=== PATIENT | female | born 1945 | race Caucasian/White ===

== ENCOUNTER → 2023-09-29 08:35 | Outpatient (REF) | payer MEDICARE, SELFPAY | LOC: WDC 08:35 | PROVIDERS: ATTENDING PHYSICIAN Nurse Practitioner; FAMILY PHYSICIAN Internal Medicine | DX: Z12.31 Encounter for screening mammogram for malignant neoplasm of breast (principal) | CPT/HCPCS: 77063; 77067 ==

== ENCOUNTER → 2023-10-06 08:34 | Outpatient (REF) | payer MEDICARE, SELFPAY | LOC: WDC 08:34 | PROVIDERS: ATTENDING PHYSICIAN Nurse Practitioner | DX: R92.8 Other abnormal and inconclusive findings on diagnostic imaging of breast (principal) | CPT/HCPCS: 76642 ==

== ENCOUNTER → 2023-10-08 10:09 | Outpatient (REF) | payer MEDICARE, SELFPAY ==
--- NOTE | 2023-10-08 13:38 | OID.BR.INTR ---
[facility] Breast Navigator - Initial
- -
Date of Contact: 10/08/23
Met with patient. Patient given written information on navigator services available at [facility]. Will follow up as needed per protocol.
== END ==
LOC: WDC 10:09
PROVIDERS: ATTENDING PHYSICIAN Nurse Practitioner
DX: N63.10 Unspecified lump in the right breast, unspecified quadrant (principal); N63.13 Unspecified lump in the right breast, lower outer quadrant
CPT/HCPCS: 88305; 19083; 77065; 88341; 88360; A4648

== ENCOUNTER 2023-11-09 12:12 | Emergency (ER) | payer MEDICARE, SELFPAY ==
[2023-11-09 12:14] VITALS: BP 148/75; BMI 24.8
--- NOTE | 2023-11-09 13:25 | ED.GENMED ---
History of Present Illness
General
Chief Complaint: Urinary Symptoms
Source: patient
Exam Limitations: none
Time Seen by Provider: 11/09/23 12:58
Nursing documentation reviewed up to this point in time: agreed with
Travel History
Have you had any contact with someone who has COVID-19?: No
Do you have any symptoms of coronavirus? Fever > 100 degrees, chills, cough, shortness of breath, sore throat, loss of taste or smell, muscle aches, or headache?: No
History of Present Illness
History of Present Illness:
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
recent diagnosis of breast ca due to start chemo nxt week
having dec urinary output the past few days, with increased frequency and urgency; she was awake a few times last night trying to go and a little dribble would come out. pt has had UTI and kidney infection before and had more dysuria sypmtoms than
this time
no fever, chills, nauesa, vomiting
had back pain left flank last niight but it resolved
she has never had kidney stone
she denies h/o urinary retetnion
she belives she has been hydrated but hasn't had appetite
Past History
Past History
ED Past Medical History: CVA and Other
ED Past Surgical History: Cardiac
Patient has exhibited threatening behavior?: No
Social History
Tobacco: Non-smoker
Alcohol: Occasional
Drug: None
Personal:
Living: with family
Review of Systems
Review of Systems
Allergies reviewed?: Yes
All Other Systems: Not applicable
Phy Exam
Physical Exam
Physical Exam:
GENERAL: Alert, comfortable
Neck: supple
CARDIAC: Regular rate and rhythm .
LUNGS: Clear breath sounds bilaterally, no acute respiratory distress, no wheezes/rales/rhonchi
ABDOMEN: Soft, normal bowel sounds, nondistended, no guarding, no rebound, neg espino's
no suprapubic fullness
mild L cva tednerness;
NEUROLOGICAL: Alert and oriented, no focal neuro deficits
SKIN: Warm and dry, skin intact.
PSYCH: Normal and appropriate interaction.
Course
Orders/Labs/Results
Orders:
Orders
11/09/23 13:09
Bladder Scan- Treatment ONCE
11/09/23 13:28
Straight cath- Treatment ONCE
0.9% Sodium Chloride 1000 ml [Nss] 1,000 ml IV BOLUS
11/09/23 13:35
Complete Blood Count/With Diff Urgent
Comprehensive Metabolic Panel Urgent
11/09/23 14:40
Urinalysis Reflex To Culture Urgent
Date Specimen was Collected: 11/09/23
Time Specimen was Collected: 14:39
Urine Microscopic Reflex Cult Urgent
11/09/23 14:41
Acetaminophen [Tylenol] 650 mg PO NOW STA
11/09/23 15:00
CT Abd/pel Without Iv Or Oral Urgent
Comment:
Reason For Exam: left flank pain, dec urinjation
11/09/23 18:12
Tamsulosin [Flomax] 0.4 mg PO NOW STA
Abnormal Lab Results
11/09/23 11/09/23
13:35 14:40
Hct 36.5 L %
(37.0-47.0)
Absolute Monos (auto) 0.8 H 10^3/uL
(0.1-0.6)
Lymphocytes % 15.8 L %
(20.5-51.1)
Monocytes % 10.0 H %
(1.7-9.3)
Sodium 129 L mmol/L
(135-145)
Chloride 96 L mmol/L
(98-107)
BUN 19 H mg/dl
(7-17)
Glucose 119 H mg/dl
(70-99)
Ur Occult Blood Reflex 2+ A
(Negative)
Urine RBC 3-6 A /HPF
(0-2)
11/09/23 13:35
11/09/23 13:35
Vital Signs
Initial and Last Documented VS:
Initial Vital Signs
Temp Pulse Resp BP Pulse Ox
98.4 F 86 16 148/75 98
11/09/23 12:14 11/09/23 12:14 11/09/23 12:14 11/09/23 12:14 11/09/23 12:14
Last Documented Vital Signs
Temp Pulse Resp BP Pulse Ox
98.4 F 62 16 138/74 98
11/09/23 12:14 11/09/23 18:18 11/09/23 18:18 11/09/23 18:18 11/09/23 18:18
MDM/Problems Addressed
Differential Diagnosis Includes:
kidney stone, kidney infection, urainary retention, uti
MDM/Problems Addressed:
77 y//o F with h/o newly dx breast ca, due to start chemo next week
cva right UE weakness chronically
noticed dec urine output x 2-3 days, dribbling at times, frequency last night, no dysuria, fever, vomiting an dsome back pain that resolved last night
here had nomal wbc , no fever, na of 129, bun 19/cr 0.9, and ua with blood an da few rbcs only
ct shows severe L hydro escondary to 2.7 mm L UVJ stone; her pain is well controlled
i gave her a liter of fluid here; no retention, but we did straight cath for ua.
pt would like to go home for trial of passage
d/w dr. marquez who agrees
flomax, tylenol fluids
return precautions
*Critical Care Note
Total Time (30-74mins, 75-104mins- exclusive of procedures): Not Applicable
ED Attending Note
-
Portions of this chart may have been created with voice recognition software.� Occasional wrong word or��sound alike� substitutions may have occurred due to the inherent limitations of voice recognition software.
Discharge Plan
Departure
Patient Disposition: Home (Routine Discharge)
Date of Disposition: 11/09/23
Time of Disposition: 18:10
Patient with high blood pressure during this ER visit?: No
Condition: Fair
Discharge Problem:
Kidney stone, Ureterolithiasis, Acute hyponatremia
Instructions: Kidney Stone, Adult ED
Prescriptions:
New
tamsulosin [Flomax] 0.4 mg capsule
0.4 mg PO DAILY Qty: 10 0RF
No Action
multivitamin [Zhd-Lousdl-Jkgom] 1 EACH tablet
1 ea PO QPM
citalopram 20 MG tablet
20 mg PO DAILY
baclofen 10 MG tablet
10 mg PO TID
ramipril 10 MG capsule
10 mg PO DAILYPRN PRN (Reason: blood pressure)
aspirin 81 MG tablet
81 mg PO ONCE
rosuvastatin [Crestor] 10 MG tablet
10 mg PO DAILY
omeprazole [Prilosec] 10 MG capsule,delayed release(DR/EC)
20 mg PO DAILY
ranitidine HCl [Zantac Maximum Strength] 150 MG tablet
150 mg PO DAILYPRN PRN (Reason: acid )
calcium citrate-vitamin D3 [Calcium Citrate + D] 1 EACH tablet
1 ea PO DAILY
sucralfate 1 GM/10 ML suspension
1 gm PO QID Qty: 10 0RF
Referrals:
Rekha Andersen MD [Family Provider] -
Blayne Marquez MD [Active] - Follow up in 5-7 days
Activity Restrictions/Additional Instructions:
YOU HAVE A SMALL KIDNEY STONE ON YOUR LEFT SIDE
DRINK FLUIDS
YOUR SODIUM WAS A LITTLE LOW, IT SHOULD BE REPEATED THIS WEEK
TAKE FLOMAX ONCE A DAY UNTIL OU PASS THE STONE
WHEN YOU URINATE, MAKE SURE TO PEE THROUGH THE STRAINER SO YOU CAN SEE WHEN YOU PASS THE STONE
TAKE TYLENOL FOR PAIN
FOLLOW UP WITH THE UROLOGIST THIS WEEK
RETURN FOR: WORSENING PAIN, FEVER, VOMITING, NOT PEEING O RNAY CONCERNS.
Interventions
Interventions:
*Risk Screen - Suicide Last Done: 11/09/23 12:14
*General Assessment Last Done: 11/09/23 13:24
*Neglect/Abuse Screening Last Done: 11/09/23 12:14
ED- Fall Risk Assessment Last Done: 11/09/23 12:14
*ED COVID-19 Vaccine History Last Done: 11/09/23 13:24
*Nursing Disposition Last Done: 11/09/23 18:24
ED-Female Genitourinary Assessment Last Done: 11/09/23 13:24
Discharge Date and Time
Discharge Date/Time: 11/09/23 18:29
Print Language: GEORGIAN
[2023-11-09] MEDS: NSS 1000 IV (13:36)
[2023-11-09 13:38] VITALS: BP 130/56
[2023-11-09 13:43] LABS: % Basophils 0.5 % (0-2); % Eosinophils 0.1 % (0-6); % Immature Granulocytes 0.3 % (0-0.5); % Lymphocytes 15.8 % (20.5-51.1); % Neutrophils 73.3 % (42.2-75.2); Absolute Lymphocytes 1.2 10^3/uL (1.2-3.4); Absolute Monocytes 0.8 10^3/uL (0.1-0.6); Absolute Neutrophils 5.5 10^3/uL (1.4-6.5); Hematocrit 36.5 % (37.0-47.0); Hemoglobin 12.5 g/dL (12.0-16.0); Mean Corp Hgb Conc. 34.2 g/dL (33.0-37.0); Mean Corpuscular Hgb 29.3 pg (27.0-31.0); Mean Corpuscular Volume 85.5 fL (81.0-99.0); Mean Platelet Volume 8.7 fL (7.4-10.4); Nucleated Red Blood Cells % 0 %; Platelet Count 248 10^3/uL (130-400); Red Blood Cell Count 4.27 10^6/uL (4.20-5.40); White Blood Cell Count 7.5 10^3/uL (4.8-10.8)
[2023-11-09 13:56] LABS: ALT (SGPT) 20 U/L (0-35); AST (SGOT) 26 U/L (14-36); Albumin 3.9 g/dl (3.5-5.0); Alkaline Phosphatase 65 U/L (38-126); Blood Urea Nitrogen 19 mg/dl (7-17); Calcium 9.4 mg/dl (8.4-10.2); Carbon Dioxide 27 mmol/L (22-30); Chloride 96 mmol/L (98-107); Estimated Creatinine Clearance 54 ml/min; Glucose 119 mg/dl (70-99); Sodium 129 mmol/L (135-145); Total Bilirubin 0.5 mg/dl (0.2-1.3); Total Protein 6.3 g/dl (6.3-8.2); eGFR > 60.00
[2023-11-09 14:43] VITALS: BP 149/71
[2023-11-09] MEDS: TYLENOL 650 MG PO (14:45)
[2023-11-09 14:52] LABS: Urine Albumin Negative (Neg - Trace); Urine Bilirubin Negative (Negative); Urine Character Clear (Clear); Urine Color Yellow; Urine Glucose Negative (Negative); Urine Ketone Negative (Negative); Urine Leukocyte Negative (Negative); Urine Nitrite Negative (Negative); Urine Occult Blood 2+ (Negative); Urine Urobilinogen Negative (Neg - 1+); Urine pH 6.5 (5.0-9.0)
[2023-11-09 14:58] LABS: Urine White Cell 0-2 /HPF (0-5)
[2023-11-09 16:33] VITALS: BP 138/74
[2023-11-09] MEDS: FLOMAX 0.400000000000000022 MG PO (18:15)
[2023-11-09 18:18] VITALS: BP 138/74
== END 2023-11-09 18:29 | disposition home or self-care (01) ==
LOC: EMR 12:12
PROVIDERS: Physician Assistant; EMERGENCY PHYSICIAN Emergency Medicine; FAMILY PHYSICIAN Internal Medicine
DX: N13.2 Hydronephrosis with renal and ureteral calculous obstruction (principal); E87.1 Hypo-osmolality and hyponatremia; R53.1 Weakness; C50.919 Malignant neoplasm of unspecified site of unspecified female breast; I69.351 Hemiplegia and hemiparesis following cerebral infarction affecting right dominant side; K58.9 Irritable bowel syndrome, unspecified; K21.9 Gastro-esophageal reflux disease without esophagitis; Z87.440 Personal history of urinary (tract) infections; Z87.891 Personal history of nicotine dependence; Z79.82 Long term (current) use of aspirin; Z90.49 Acquired absence of other specified parts of digestive tract; Z88.6 Allergy status to analgesic agent; Z88.3 Allergy status to other anti-infective agents; Z88.5 Allergy status to narcotic agent; Z88.0 Allergy status to penicillin; Z88.8 Allergy status to other drugs, medicaments and biological substances; Z91.048 Other nonmedicinal substance allergy status
CPT/HCPCS: 99284; 51701; 96360; 74176; 80053; 81003; 81015; 85025

== ENCOUNTER → 2023-11-17 08:20 | Outpatient (REF) | payer MEDICARE, SELFPAY ==
[2023-11-17 08:37] VITALS: BP 142/74; BP_SYST 69
[2023-11-17] MEDS: VANCOCIN 200 IV (08:58)
[2023-11-17 10:35] VITALS: BP 136/62; BP_SYST 66
== END ==
LOC: RADI 08:20
PROVIDERS: ATTENDING PHYSICIAN Internal Medicine Hematology & Oncology; FAMILY PHYSICIAN Internal Medicine
DX: C50.511 Malignant neoplasm of lower-outer quadrant of right female breast (principal)
CPT/HCPCS: 36561; 76937; 77001; 99152; 99153; C1788

== ENCOUNTER → 2023-11-20 10:01 | Outpatient (REF) | payer MEDICARE, SELFPAY ==
[2023-11-20 10:06] LABS: % Basophils 1.3 % (0-2); % Immature Granulocytes 0.3 % (0-0.5); % Lymphocytes 28.1 % (20.5-51.1); % Monocytes 5.2 % (1.7-9.3); % Neutrophils 64.1 % (42.2-75.2); Absolute Basophils 0.1 10^3/uL (0-0.2); Absolute Lymphocytes 1.1 10^3/uL (1.2-3.4); Absolute Monocytes 0.2 10^3/uL (0.1-0.6); Absolute Neutrophils 2.4 10^3/uL (1.4-6.5); Hematocrit 37.3 % (37.0-47.0); Hemoglobin 12.2 g/dL (12.0-16.0); Mean Corp Hgb Conc. 32.7 g/dL (33.0-37.0); Mean Corpuscular Hgb 29.1 pg (27.0-31.0); Nucleated Red Blood Cells % 0 %; Platelet Count 269 10^3/uL (130-400); Red Blood Cell Count 4.19 10^6/uL (4.20-5.40); Red Cell Dist. Width 12.9 % (11.5-14.5); White Blood Cell Count 3.8 10^3/uL (4.8-10.8)
[2023-11-20 10:18] LABS: ALT (SGPT) 19 U/L (0-35); AST (SGOT) 25 U/L (14-36); Albumin 3.9 g/dl (3.5-5.0); Alkaline Phosphatase 66 U/L (38-126); Blood Urea Nitrogen 17 mg/dl (7-17); Calcium 9.3 mg/dl (8.4-10.2); Carbon Dioxide 28 mmol/L (22-30); Chloride 103 mmol/L (98-107); Glucose 102 mg/dl (70-99); Potassium 4.5 mmol/L (3.5-5.1); Sodium 136 mmol/L (135-145); Total Bilirubin 0.4 mg/dl (0.2-1.3); Total Protein 6.3 g/dl (6.3-8.2); eGFR > 60.00
== END ==
LOC: OIDL 10:01
PROVIDERS: ATTENDING PHYSICIAN Internal Medicine Hematology & Oncology
DX: C50.511 Malignant neoplasm of lower-outer quadrant of right female breast (principal)
CPT/HCPCS: 80053; 85025

== ENCOUNTER → 2023-11-26 10:44 | Outpatient (REF) | payer MEDICARE, SELFPAY ==
[2023-11-26 11:15] LABS: % Basophils 1.4 % (0-2); % Eosinophils 1.4 % (0-6); % Immature Granulocytes 0.3 % (0-0.5); % Lymphocytes 32.5 % (20.5-51.1); % Monocytes 4.2 % (1.7-9.3); % Neutrophils 60.2 % (42.2-75.2); Absolute Lymphocytes 0.9 10^3/uL (1.2-3.4); Absolute Monocytes 0.1 10^3/uL (0.1-0.6); Absolute Neutrophils 1.7 10^3/uL (1.4-6.5); Hemoglobin 11.8 g/dL (12.0-16.0); Mean Corp Hgb Conc. 31.9 g/dL (33.0-37.0); Mean Corpuscular Hgb 29.3 pg (27.0-31.0); Mean Corpuscular Volume 91.8 fL (81.0-99.0); Nucleated Red Blood Cells % 0 %; Platelet Count 277 10^3/uL (130-400); Red Blood Cell Count 4.03 10^6/uL (4.20-5.40); Red Cell Dist. Width 12.8 % (11.5-14.5); White Blood Cell Count 2.9 10^3/uL (4.8-10.8)
[2023-11-26 11:43] LABS: ALT (SGPT) 17 U/L (0-35); AST (SGOT) 23 U/L (14-36); Albumin 3.6 g/dl (3.5-5.0); Alkaline Phosphatase 64 U/L (38-126); Blood Urea Nitrogen 14 mg/dl (7-17); Calcium 9.2 mg/dl (8.4-10.2); Carbon Dioxide 28 mmol/L (22-30); Chloride 103 mmol/L (98-107); Glucose 95 mg/dl (70-99); Potassium 4.6 mmol/L (3.5-5.1); Sodium 136 mmol/L (135-145); Total Bilirubin 0.5 mg/dl (0.2-1.3); eGFR > 60.00
[2023-11-26 11:57] LABS: Free T4 1.07 ng/dl (0.78-2.19)
[2023-11-26 12:11] LABS: TSH 1.12 uIU/ml (0.47-4.68)
[2023-11-28 19:57] LABS: Total T3 (Sendout) 84 ng/dL (80-200)
== END ==
LOC: REG 10:44
PROVIDERS: ATTENDING PHYSICIAN Internal Medicine Hematology & Oncology; FAMILY PHYSICIAN Internal Medicine
DX: C50.511 Malignant neoplasm of lower-outer quadrant of right female breast (principal); R13.10 Dysphagia, unspecified
CPT/HCPCS: 36415; 80053; 84439; 84443; 84480; 85025

== ENCOUNTER → 2023-12-03 11:45 | Outpatient (REF) | payer MEDICARE, SELFPAY ==
[2023-12-03 13:27] LABS: % Basophils 1.6 % (0-2); % Eosinophils 0.4 % (0-6); % Immature Granulocytes 0.4 % (0-0.5); % Lymphocytes 39.1 % (20.5-51.1); % Monocytes 5.1 % (1.7-9.3); % Neutrophils 53.4 % (42.2-75.2); Absolute Monocytes 0.1 10^3/uL (0.1-0.6); Absolute Neutrophils 1.4 10^3/uL (1.4-6.5); Hematocrit 36.1 % (37.0-47.0); Hemoglobin 11.9 g/dL (12.0-16.0); Mean Corpuscular Hgb 29.6 pg (27.0-31.0); Mean Corpuscular Volume 89.8 fL (81.0-99.0); Mean Platelet Volume 9.1 fL (7.4-10.4); Nucleated Red Blood Cells % 0 %; Platelet Count 421 10^3/uL (130-400); Red Blood Cell Count 4.02 10^6/uL (4.20-5.40); Red Cell Dist. Width 13.2 % (11.5-14.5); White Blood Cell Count 2.6 10^3/uL (4.8-10.8)
[2023-12-03 14:00] LABS: ALT (SGPT) 24 U/L (0-35); AST (SGOT) 28 U/L (14-36); Albumin 3.9 g/dl (3.5-5.0); Alkaline Phosphatase 66 U/L (38-126); Blood Urea Nitrogen 14 mg/dl (7-17); Calcium 9.4 mg/dl (8.4-10.2); Carbon Dioxide 27 mmol/L (22-30); Chloride 101 mmol/L (98-107); Glucose 94 mg/dl (70-99); Potassium 4.8 mmol/L (3.5-5.1); Sodium 133 mmol/L (135-145); Total Bilirubin 0.6 mg/dl (0.2-1.3); Total Protein 6.2 g/dl (6.3-8.2); eGFR > 60.00
[2023-12-03 14:16] LABS: Free T4 1.29 ng/dl (0.78-2.19)
[2023-12-03 14:30] LABS: TSH 1.36 uIU/ml (0.47-4.68)
[2023-12-06 01:25] LABS: Total T3 (Sendout) 109 ng/dL (80-200)
== END ==
LOC: REG 11:45
PROVIDERS: ATTENDING PHYSICIAN Internal Medicine Hematology & Oncology; FAMILY PHYSICIAN Internal Medicine
DX: C50.511 Malignant neoplasm of lower-outer quadrant of right female breast (principal); R13.10 Dysphagia, unspecified
CPT/HCPCS: 36415; 80053; 84439; 84443; 84480; 85025

== ENCOUNTER → 2023-12-09 10:52 | Outpatient (REF) | payer MEDICARE, SELFPAY ==
[2023-12-09 12:21] LABS: % Basophils 1.8 % (0-2); % Eosinophils 0.5 % (0-6); % Immature Granulocytes 0.5 % (0-0.5); % Lymphocytes 42.7 % (20.5-51.1); % Neutrophils 49.5 % (42.2-75.2); Absolute Lymphocytes 0.9 10^3/uL (1.2-3.4); Absolute Monocytes 0.1 10^3/uL (0.1-0.6); Absolute Neutrophils 1.1 10^3/uL (1.4-6.5); Hematocrit 34.5 % (37.0-47.0); Hemoglobin 11.3 g/dL (12.0-16.0); Mean Corp Hgb Conc. 32.8 g/dL (33.0-37.0); Mean Corpuscular Hgb 29.3 pg (27.0-31.0); Mean Corpuscular Volume 89.4 fL (81.0-99.0); Mean Platelet Volume 8.9 fL (7.4-10.4); Nucleated Red Blood Cells % 0 %; Platelet Count 389 10^3/uL (130-400); Red Blood Cell Count 3.86 10^6/uL (4.20-5.40); White Blood Cell Count 2.2 10^3/uL (4.8-10.8)
[2023-12-09 14:36] LABS: ALT (SGPT) 27 U/L (0-35); AST (SGOT) 31 U/L (14-36); Albumin 3.9 g/dl (3.5-5.0); Alkaline Phosphatase 54 U/L (38-126); Blood Urea Nitrogen 11 mg/dl (7-17); Carbon Dioxide 28 mmol/L (22-30); Chloride 101 mmol/L (98-107); Glucose 87 mg/dl (70-99); Potassium 4.9 mmol/L (3.5-5.1); Sodium 133 mmol/L (135-145); Total Bilirubin 0.5 mg/dl (0.2-1.3); eGFR > 60.00
[2023-12-09 14:51] LABS: Free T4 1.33 ng/dl (0.78-2.19)
[2023-12-09 15:05] LABS: TSH 1.05 uIU/ml (0.47-4.68)
== END ==
LOC: REG 10:52
PROVIDERS: ATTENDING PHYSICIAN Internal Medicine Hematology & Oncology; FAMILY PHYSICIAN Internal Medicine
DX: C50.511 Malignant neoplasm of lower-outer quadrant of right female breast (principal); R13.10 Dysphagia, unspecified
CPT/HCPCS: 36415; 80053; 84439; 84443; 85025

== ENCOUNTER → 2023-12-16 14:37 | Outpatient (REF) | payer MEDICARE, SELFPAY ==
[2023-12-16 17:13] LABS: % Eosinophils 0.6 % (0-6); % Immature Granulocytes 0.6 % (0-0.5); % Lymphocytes 41.7 % (20.5-51.1); % Neutrophils 39.1 % (42.2-75.2); Absolute Basophils 0.1 10^3/uL (0-0.2); Absolute Lymphocytes 1.5 10^3/uL (1.2-3.4); Absolute Monocytes 0.6 10^3/uL (0.1-0.6); Absolute Neutrophils 1.4 10^3/uL (1.4-6.5); Hematocrit 34.3 % (37.0-47.0); Hemoglobin 11.3 g/dL (12.0-16.0); Mean Corp Hgb Conc. 32.9 g/dL (33.0-37.0); Mean Corpuscular Hgb 30.1 pg (27.0-31.0); Mean Corpuscular Volume 91.5 fL (81.0-99.0); Mean Platelet Volume 9.1 fL (7.4-10.4); Nucleated Red Blood Cells % 0 %; Platelet Count 296 10^3/uL (130-400); Red Blood Cell Count 3.75 10^6/uL (4.20-5.40); Red Cell Dist. Width 14.1 % (11.5-14.5); White Blood Cell Count 3.5 10^3/uL (4.8-10.8)
[2023-12-16 17:30] LABS: ALT (SGPT) 26 U/L (0-35); AST (SGOT) 31 U/L (14-36); Albumin 4.1 g/dl (3.5-5.0); Alkaline Phosphatase 70 U/L (38-126); Blood Urea Nitrogen 12 mg/dl (7-17); Calcium 9.4 mg/dl (8.4-10.2); Carbon Dioxide 24 mmol/L (22-30); Chloride 103 mmol/L (98-107); Glucose 87 mg/dl (70-99); Potassium 4.4 mmol/L (3.5-5.1); Sodium 136 mmol/L (135-145); Total Bilirubin 0.3 mg/dl (0.2-1.3); Total Protein 6.1 g/dl (6.3-8.2); eGFR > 60.00
== END ==
LOC: REG 14:37
PROVIDERS: ATTENDING PHYSICIAN Internal Medicine Hematology & Oncology; FAMILY PHYSICIAN Internal Medicine
DX: C50.511 Malignant neoplasm of lower-outer quadrant of right female breast (principal)
CPT/HCPCS: 36415; 80053; 85025

== ENCOUNTER → 2023-12-24 11:33 | Outpatient (REF) | payer MEDICARE, SELFPAY ==
[2023-12-24 13:00] LABS: % Basophils 2.2 % (0-2); % Eosinophils 0.6 % (0-6); % Immature Granulocytes 0.3 % (0-0.5); % Lymphocytes 34.3 % (20.5-51.1); % Monocytes 4.7 % (1.7-9.3); % Neutrophils 57.9 % (42.2-75.2); Absolute Basophils 0.1 10^3/uL (0-0.2); Absolute Lymphocytes 1.1 10^3/uL (1.2-3.4); Absolute Monocytes 0.2 10^3/uL (0.1-0.6); Absolute Neutrophils 1.9 10^3/uL (1.4-6.5); Hematocrit 34.8 % (37.0-47.0); Hemoglobin 11.6 g/dL (12.0-16.0); Mean Corp Hgb Conc. 33.3 g/dL (33.0-37.0); Mean Corpuscular Hgb 29.7 pg (27.0-31.0); Mean Corpuscular Volume 89.2 fL (81.0-99.0); Mean Platelet Volume 9.5 fL (7.4-10.4); Nucleated Red Blood Cells % 0 %; Platelet Count 202 10^3/uL (130-400); Red Cell Dist. Width 13.9 % (11.5-14.5); White Blood Cell Count 3.2 10^3/uL (4.8-10.8)
[2023-12-24 13:24] LABS: ALT (SGPT) 24 U/L (0-35); AST (SGOT) 28 U/L (14-36); Albumin 3.9 g/dl (3.5-5.0); Alkaline Phosphatase 62 U/L (38-126); Blood Urea Nitrogen 15 mg/dl (7-17); Calcium 9.2 mg/dl (8.4-10.2); Carbon Dioxide 27 mmol/L (22-30); Chloride 102 mmol/L (98-107); Glucose 87 mg/dl (70-99); Potassium 4.5 mmol/L (3.5-5.1); Sodium 134 mmol/L (135-145); Total Bilirubin 0.5 mg/dl (0.2-1.3); eGFR > 60.00
[2023-12-24 13:40] LABS: Free T4 1.12 ng/dl (0.78-2.19)
[2023-12-26 16:13] LABS: Total T3 (Sendout) 103 ng/dL (80-200)
== END ==
LOC: REG 11:33
PROVIDERS: ATTENDING PHYSICIAN Internal Medicine Hematology & Oncology; FAMILY PHYSICIAN Internal Medicine
DX: C50.511 Malignant neoplasm of lower-outer quadrant of right female breast (principal); R13.10 Dysphagia, unspecified
CPT/HCPCS: 36415; 80053; 84439; 84443; 84480; 85025

== ENCOUNTER → 2023-12-31 11:39 | Outpatient (REF) | payer MEDICARE, SELFPAY ==
[2023-12-31 12:36] LABS: ALT (SGPT) 21 U/L (0-35); AST (SGOT) 28 U/L (14-36); Albumin 3.7 g/dl (3.5-5.0); Alkaline Phosphatase 62 U/L (38-126); Blood Urea Nitrogen 12 mg/dl (7-17); Calcium 9.2 mg/dl (8.4-10.2); Carbon Dioxide 26 mmol/L (22-30); Chloride 104 mmol/L (98-107); Glucose 129 mg/dl (70-99); Potassium 4.2 mmol/L (3.5-5.1); Sodium 135 mmol/L (135-145); Total Bilirubin 0.5 mg/dl (0.2-1.3); Total Protein 5.7 g/dl (6.3-8.2); eGFR > 60.00
[2023-12-31 12:41] LABS: % Basophils 1.1 % (0-2); % Eosinophils 1.1 % (0-6); % Immature Granulocytes 0.4 % (0-0.5); % Lymphocytes 37.2 % (20.5-51.1); % Monocytes 4.2 % (1.7-9.3); Absolute Monocytes 0.1 10^3/uL (0.1-0.6); Absolute Neutrophils 1.5 10^3/uL (1.4-6.5); Hematocrit 32.3 % (37.0-47.0); Hemoglobin 10.9 g/dL (12.0-16.0); Mean Corp Hgb Conc. 33.7 g/dL (33.0-37.0); Mean Corpuscular Hgb 30.7 pg (27.0-31.0); Mean Platelet Volume 9.1 fL (7.4-10.4); Nucleated Red Blood Cells % 0 %; Platelet Count 180 10^3/uL (130-400); Red Blood Cell Count 3.55 10^6/uL (4.20-5.40); Red Cell Dist. Width 14.1 % (11.5-14.5); White Blood Cell Count 2.6 10^3/uL (4.8-10.8)
[2023-12-31 13:18] LABS: Free T3 3.19 pg/ml (2.77-5.27)
[2023-12-31 13:31] LABS: TSH 1.11 uIU/ml (0.47-4.68)
== END ==
LOC: REG 11:39
PROVIDERS: ATTENDING PHYSICIAN Internal Medicine Hematology & Oncology; FAMILY PHYSICIAN Internal Medicine
DX: C50.511 Malignant neoplasm of lower-outer quadrant of right female breast (principal); R13.10 Dysphagia, unspecified
CPT/HCPCS: 36415; 80053; 84439; 84443; 84481; 85025

== ENCOUNTER → 2024-01-07 11:39 | Outpatient (REF) | payer MEDICARE, SELFPAY ==
[2024-01-07 13:03] LABS: ALT (SGPT) 20 U/L (0-35); AST (SGOT) 24 U/L (14-36); Albumin 3.7 g/dl (3.5-5.0); Alkaline Phosphatase 69 U/L (38-126); Blood Urea Nitrogen 14 mg/dl (7-17); Calcium 9.2 mg/dl (8.4-10.2); Carbon Dioxide 25 mmol/L (22-30); Chloride 103 mmol/L (98-107); Glucose 102 mg/dl (70-99); Potassium 4.6 mmol/L (3.5-5.1); Sodium 132 mmol/L (135-145); Total Bilirubin 0.4 mg/dl (0.2-1.3); Total Protein 5.8 g/dl (6.3-8.2); eGFR > 60.00
[2024-01-07 13:43] LABS: % Basophils 1.5 % (0-2); % Eosinophils 0.5 % (0-6); % Lymphocytes 45.6 % (20.5-51.1); % Monocytes 6.7 % (1.7-9.3); % Neutrophils 45.7 % (42.2-75.2); Absolute Lymphocytes 0.9 10^3/uL (1.2-3.4); Absolute Monocytes 0.1 10^3/uL (0.1-0.6); Absolute Neutrophils 0.9 10^3/uL (1.4-6.5); Hematocrit 31.1 % (37.0-47.0); Hemoglobin 10.3 g/dL (12.0-16.0); Mean Corp Hgb Conc. 33.1 g/dL (33.0-37.0); Mean Corpuscular Hgb 30.3 pg (27.0-31.0); Mean Corpuscular Volume 91.5 fL (81.0-99.0); Mean Platelet Volume 8.8 fL (7.4-10.4); Nucleated Red Blood Cells % 0 %; Platelet Count 227 10^3/uL (130-400); Red Cell Dist. Width 14.6 % (11.5-14.5)
== END ==
LOC: REG 11:39
PROVIDERS: ATTENDING PHYSICIAN Internal Medicine Hematology & Oncology; FAMILY PHYSICIAN Internal Medicine
DX: C50.511 Malignant neoplasm of lower-outer quadrant of right female breast (principal)
CPT/HCPCS: 36415; 80053; 85025

== ENCOUNTER → 2024-01-14 11:43 | Outpatient (REF) | payer MEDICARE, SELFPAY ==
[2024-01-14 14:26] LABS: ALT (SGPT) 22 U/L (0-35); AST (SGOT) 30 U/L (14-36); Albumin 3.8 g/dl (3.5-5.0); Alkaline Phosphatase 68 U/L (38-126); Blood Urea Nitrogen 16 mg/dl (7-17); Calcium 9.4 mg/dl (8.4-10.2); Carbon Dioxide 27 mmol/L (22-30); Chloride 102 mmol/L (98-107); Glucose 82 mg/dl (70-99); Potassium 4.7 mmol/L (3.5-5.1); Sodium 134 mmol/L (135-145); Total Bilirubin 0.3 mg/dl (0.2-1.3); Total Protein 5.8 g/dl (6.3-8.2); eGFR > 60.00
[2024-01-14 14:43] LABS: Free T4 0.99 ng/dl (0.78-2.19)
[2024-01-14 15:03] LABS: Hemoglobin 10.9 g/dL (12.0-16.0); Mean Corpuscular Hgb 30.4 pg (27.0-31.0); Mean Corpuscular Volume 91.9 fL (81.0-99.0); Mean Platelet Volume 8.5 fL (7.4-10.4); Platelet Count 278 10^3/uL (130-400); Red Blood Cell Count 3.59 10^6/uL (4.20-5.40); Red Cell Dist. Width 14.7 % (11.5-14.5); White Blood Cell Count 2.6 10^3/uL (4.8-10.8)
[2024-01-14 15:04] LABS: Absolute Neutrophils -Man Diff 1.1 10^3/uL (1.4-6.5); Band Neutrophils 0 % (0-3); Eosinophils 1 % (0-6); Lymphocytes 37 % (20-51); Metamyelocytes 1 % (-); Monocytes 15 % (2-9); Normal RBC Morphology Yes; Platelets Checked Yes; Segmented Neutrophils 46 % (42-75); Total Cells Counted 100
[2024-01-16 13:15] LABS: Total T3 (Sendout) 102 ng/dL (80-200)
== END ==
LOC: REG 11:43
PROVIDERS: ATTENDING PHYSICIAN Internal Medicine Hematology & Oncology; FAMILY PHYSICIAN Internal Medicine
DX: C50.511 Malignant neoplasm of lower-outer quadrant of right female breast (principal); K29.70 Gastritis, unspecified, without bleeding; R13.10 Dysphagia, unspecified
CPT/HCPCS: 36415; 80053; 84439; 84443; 84480; 85025

== ENCOUNTER → 2024-01-21 11:29 | Outpatient (REF) | payer MEDICARE, SELFPAY ==
[2024-01-21 12:22] LABS: Hematocrit 33.7 % (37.0-47.0); Hemoglobin 11.1 g/dL (12.0-16.0); Mean Corp Hgb Conc. 32.9 g/dL (33.0-37.0); Mean Corpuscular Hgb 29.4 pg (27.0-31.0); Mean Corpuscular Volume 89.2 fL (81.0-99.0); Mean Platelet Volume 8.9 fL (7.4-10.4); Platelet Count 237 10^3/uL (130-400); Red Blood Cell Count 3.78 10^6/uL (4.20-5.40); Red Cell Dist. Width 15.2 % (11.5-14.5); White Blood Cell Count 5.1 10^3/uL (4.8-10.8)
[2024-01-21 12:45] LABS: % Basophils 1.6 % (0-2); % Immature Granulocytes 8.8 % (0-0.5); % Lymphocytes 31.6 % (20.5-51.1); % Monocytes 16.8 % (1.7-9.3); % Neutrophils 40.2 % (42.2-75.2); Absolute Basophils 0.1 10^3/uL (0-0.2); Absolute Eosinophils 0.1 10^3/uL (0-0.7); Absolute Immature Granulocytes 0.5 10^3/uL (0-0.05); Absolute Lymphocytes 1.6 10^3/uL (1.2-3.4); Absolute Monocytes 0.9 10^3/uL (0.1-0.6); Absolute Neutrophils 2.1 10^3/uL (1.4-6.5); Nucleated Red Blood Cells % 0 %
[2024-01-21 12:56] LABS: ALT (SGPT) 19 U/L (0-35); AST (SGOT) 27 U/L (14-36); Albumin 3.9 g/dl (3.5-5.0); Alkaline Phosphatase 80 U/L (38-126); Blood Urea Nitrogen 14 mg/dl (7-17); Calcium 9.5 mg/dl (8.4-10.2); Carbon Dioxide 24 mmol/L (22-30); Chloride 105 mmol/L (98-107); Glucose 82 mg/dl (70-99); Potassium 4.4 mmol/L (3.5-5.1); Sodium 136 mmol/L (135-145); Total Bilirubin 0.3 mg/dl (0.2-1.3); Total Protein 5.9 g/dl (6.3-8.2); eGFR > 60.00
== END ==
LOC: REG 11:29
PROVIDERS: ATTENDING PHYSICIAN Internal Medicine Hematology & Oncology; FAMILY PHYSICIAN Internal Medicine
DX: C50.511 Malignant neoplasm of lower-outer quadrant of right female breast (principal)
CPT/HCPCS: 36415; 80053; 85025

== ENCOUNTER → 2024-01-28 13:10 | Outpatient (REF) | payer MEDICARE, SELFPAY ==
[2024-01-28 14:34] LABS: Hematocrit 32.3 % (37.0-47.0); Hemoglobin 10.5 g/dL (12.0-16.0); Mean Corp Hgb Conc. 32.5 g/dL (33.0-37.0); Mean Corpuscular Hgb 29.2 pg (27.0-31.0); Mean Corpuscular Volume 89.7 fL (81.0-99.0); Mean Platelet Volume 9.4 fL (7.4-10.4); Platelet Count 199 10^3/uL (130-400); Red Cell Dist. Width 15.6 % (11.5-14.5); White Blood Cell Count 23.4 10^3/uL (4.8-10.8)
[2024-01-28 15:08] LABS: Absolute Neutrophils -Man Diff 21.2 10^3/uL (1.4-6.5); Band Neutrophils 1 % (0-3); Lymphocytes 9 % (20-51); Normal RBC Morphology Yes; Platelets Checked Yes; Segmented Neutrophils 90 % (42-75); Total Cells Counted 100
[2024-01-28 15:44] LABS: ALT (SGPT) 20 U/L (0-35); AST (SGOT) 30 U/L (14-36); Albumin 3.8 g/dl (3.5-5.0); Alkaline Phosphatase 95 U/L (38-126); Blood Urea Nitrogen 11 mg/dl (7-17); Calcium 9.4 mg/dl (8.4-10.2); Carbon Dioxide 27 mmol/L (22-30); Chloride 101 mmol/L (98-107); Glucose 91 mg/dl (70-99); Potassium 4.1 mmol/L (3.5-5.1); Sodium 133 mmol/L (135-145); Total Bilirubin 0.5 mg/dl (0.2-1.3); Total Protein 5.9 g/dl (6.3-8.2); eGFR > 60.00
[2024-01-31 05:13] LABS: Total T3 (Sendout) 102 ng/dL (80-200)
== END ==
LOC: REG 13:10
PROVIDERS: ATTENDING PHYSICIAN Internal Medicine Hematology & Oncology; FAMILY PHYSICIAN Internal Medicine
DX: C50.511 Malignant neoplasm of lower-outer quadrant of right female breast (principal); R13.10 Dysphagia, unspecified
CPT/HCPCS: 36415; 80053; 84439; 84443; 84480; 85025

== ENCOUNTER → 2024-02-04 10:34 | Outpatient (REF) | payer MEDICARE, SELFPAY ==
[2024-02-04 13:16] LABS: Free T3 2.68 pg/ml (2.77-5.27); Free T4 0.93 ng/dl (0.78-2.19)
[2024-02-04 13:29] LABS: TSH 1.55 uIU/ml (0.47-4.68)
== END ==
LOC: REG 10:34
PROVIDERS: ATTENDING PHYSICIAN Internal Medicine Hematology & Oncology; FAMILY PHYSICIAN Internal Medicine
DX: C50.511 Malignant neoplasm of lower-outer quadrant of right female breast (principal); R13.10 Dysphagia, unspecified
CPT/HCPCS: 36415; 84439; 84443; 84481

== ENCOUNTER → 2024-02-05 09:08 | Outpatient (REF) | payer MEDICARE, SELFPAY ==
[2024-02-05 10:00] LABS: ALT (SGPT) 25 U/L (0-35); AST (SGOT) 32 U/L (14-36); Albumin 3.9 g/dl (3.5-5.0); Alkaline Phosphatase 86 U/L (38-126); Blood Urea Nitrogen 9 mg/dl (7-17); Calcium 9.5 mg/dl (8.4-10.2); Carbon Dioxide 25 mmol/L (22-30); Chloride 102 mmol/L (98-107); Glucose 112 mg/dl (70-99); Potassium 4.2 mmol/L (3.5-5.1); Sodium 137 mmol/L (135-145); Total Bilirubin 0.4 mg/dl (0.2-1.3); Total Protein 5.9 g/dl (6.3-8.2); eGFR > 60.00
[2024-02-05 10:01] LABS: Hematocrit 31.5 % (37.0-47.0); Hemoglobin 10.4 g/dL (12.0-16.0); Mean Corpuscular Hgb 29.7 pg (27.0-31.0); Mean Platelet Volume 9.1 fL (7.4-10.4); Platelet Count 276 10^3/uL (130-400); Red Cell Dist. Width 15.9 % (11.5-14.5); White Blood Cell Count 19.4 10^3/uL (4.8-10.8)
[2024-02-05 11:27] LABS: % Basophils 0.3 % (0-2); % Eosinophils 0.2 % (0-6); % Immature Granulocytes 0.8 % (0-0.5); % Lymphocytes 8.6 % (20.5-51.1); % Monocytes 4.2 % (1.7-9.3); % Neutrophils 85.9 % (42.2-75.2); Absolute Basophils 0.1 10^3/uL (0-0.2); Absolute Immature Granulocytes 0.2 10^3/uL (0-0.05); Absolute Lymphocytes 1.7 10^3/uL (1.2-3.4); Absolute Monocytes 0.8 10^3/uL (0.1-0.6); Absolute Neutrophils 16.7 10^3/uL (1.4-6.5); Nucleated Red Blood Cells % 0 %
== END ==
LOC: OIDL 09:08
PROVIDERS: ATTENDING PHYSICIAN Internal Medicine Hematology & Oncology
DX: C50.511 Malignant neoplasm of lower-outer quadrant of right female breast (principal); R53.83 Other fatigue; R79.9 Abnormal finding of blood chemistry, unspecified
CPT/HCPCS: 80053; 85025

== ENCOUNTER → 2024-02-11 08:40 | Outpatient (REF) | payer MEDICARE, SELFPAY ==
[2024-02-11 10:07] LABS: Hematocrit 30.3 % (37.0-47.0); Hemoglobin 9.9 g/dL (12.0-16.0); Mean Corp Hgb Conc. 32.7 g/dL (33.0-37.0); Mean Corpuscular Hgb 29.7 pg (27.0-31.0); Platelet Count 321 10^3/uL (130-400); Red Blood Cell Count 3.33 10^6/uL (4.20-5.40); Red Cell Dist. Width 16.1 % (11.5-14.5); White Blood Cell Count 16.7 10^3/uL (4.8-10.8)
[2024-02-11 10:44] LABS: % Basophils 0.4 % (0-2); % Eosinophils 0.1 % (0-6); % Immature Granulocytes 7.4 % (0-0.5); % Lymphocytes 6.4 % (20.5-51.1); % Monocytes 2.6 % (1.7-9.3); % Neutrophils 83.1 % (42.2-75.2); Absolute Basophils 0.1 10^3/uL (0-0.2); Absolute Immature Granulocytes 1.2 10^3/uL (0-0.05); Absolute Lymphocytes 1.1 10^3/uL (1.2-3.4); Absolute Monocytes 0.4 10^3/uL (0.1-0.6); Absolute Neutrophils 13.9 10^3/uL (1.4-6.5); Nucleated Red Blood Cells % 0 %
[2024-02-11 12:24] LABS: ALT (SGPT) 21 U/L (0-35); AST (SGOT) 27 U/L (14-36); Albumin 3.7 g/dl (3.5-5.0); Alkaline Phosphatase 76 U/L (38-126); Blood Urea Nitrogen 12 mg/dl (7-17); Calcium 9.4 mg/dl (8.4-10.2); Carbon Dioxide 23 mmol/L (22-30); Chloride 102 mmol/L (98-107); Glucose 79 mg/dl (70-99); Potassium 4.3 mmol/L (3.5-5.1); Sodium 137 mmol/L (135-145); Total Bilirubin 0.6 mg/dl (0.2-1.3); Total Protein 5.8 g/dl (6.3-8.2); eGFR > 60.00
[2024-02-11 12:38] LABS: Free T4 1.04 ng/dl (0.78-2.19)
[2024-02-12 22:27] LABS: Total T3 (Sendout) 113 ng/dL (80-200)
== END ==
LOC: REG 08:40
PROVIDERS: ATTENDING PHYSICIAN Internal Medicine Hematology & Oncology; FAMILY PHYSICIAN Internal Medicine
DX: C50.511 Malignant neoplasm of lower-outer quadrant of right female breast (principal); R13.10 Dysphagia, unspecified
CPT/HCPCS: 36415; 80053; 84439; 84443; 84480; 85025

== ENCOUNTER → 2024-02-12 13:27 | Outpatient (REF) | payer MEDICARE, SELFPAY | LOC: RCS 13:27 | PROVIDERS: ATTENDING PHYSICIAN Internal Medicine Hematology & Oncology; FAMILY PHYSICIAN Internal Medicine | DX: C50.511 Malignant neoplasm of lower-outer quadrant of right female breast (principal) | CPT/HCPCS: 93306; 93356 ==

== ENCOUNTER → 2024-02-18 12:39 | Outpatient (REF) | payer MEDICARE, SELFPAY ==
[2024-02-18 13:44] LABS: Mean Corp Hgb Conc. 32.3 g/dL (33.0-37.0); Mean Corpuscular Hgb 30.4 pg (27.0-31.0); Mean Corpuscular Volume 94.2 fL (81.0-99.0); Platelet Count 286 10^3/uL (130-400); Red Blood Cell Count 3.29 10^6/uL (4.20-5.40); Red Cell Dist. Width 16.5 % (11.5-14.5); White Blood Cell Count 17.3 10^3/uL (4.8-10.8)
[2024-02-18 13:55] LABS: ALT (SGPT) 23 U/L (0-35); AST (SGOT) 31 U/L (14-36); Albumin 3.6 g/dl (3.5-5.0); Alkaline Phosphatase 80 U/L (38-126); Blood Urea Nitrogen 10 mg/dl (7-17); Calcium 9.5 mg/dl (8.4-10.2); Carbon Dioxide 26 mmol/L (22-30); Chloride 103 mmol/L (98-107); Glucose 93 mg/dl (70-99); Potassium 3.8 mmol/L (3.5-5.1); Sodium 137 mmol/L (135-145); Total Bilirubin 0.5 mg/dl (0.2-1.3); Total Protein 5.7 g/dl (6.3-8.2); eGFR > 60.00
[2024-02-18 14:24] LABS: % Basophils 1.1 % (0-2); % Eosinophils 0.1 % (0-6); % Immature Granulocytes 7.7 % (0-0.5); % Lymphocytes 8.6 % (20.5-51.1); % Monocytes 4.4 % (1.7-9.3); % Neutrophils 78.1 % (42.2-75.2); Absolute Basophils 0.2 10^3/uL (0-0.2); Absolute Immature Granulocytes 1.3 10^3/uL (0-0.05); Absolute Lymphocytes 1.5 10^3/uL (1.2-3.4); Absolute Monocytes 0.8 10^3/uL (0.1-0.6); Absolute Neutrophils 13.6 10^3/uL (1.4-6.5); Nucleated Red Blood Cells % 0 %
== END ==
LOC: REG 12:39
PROVIDERS: ATTENDING PHYSICIAN Internal Medicine Hematology & Oncology; FAMILY PHYSICIAN Internal Medicine
DX: C50.511 Malignant neoplasm of lower-outer quadrant of right female breast (principal)
CPT/HCPCS: 36415; 80053; 85025

== ENCOUNTER → 2024-02-26 09:37 | Outpatient (REF) | payer MEDICARE, SELFPAY ==
[2024-02-26 10:44] LABS: Hematocrit 29.3 % (37.0-47.0); Hemoglobin 9.7 g/dL (12.0-16.0); Mean Corp Hgb Conc. 33.1 g/dL (33.0-37.0); Mean Corpuscular Hgb 31.2 pg (27.0-31.0); Mean Corpuscular Volume 94.2 fL (81.0-99.0); Mean Platelet Volume 9.3 fL (7.4-10.4); Platelet Count 258 10^3/uL (130-400); Red Blood Cell Count 3.11 10^6/uL (4.20-5.40); Red Cell Dist. Width 16.5 % (11.5-14.5); White Blood Cell Count 14.7 10^3/uL (4.8-10.8)
[2024-02-26 11:00] LABS: % Basophils 0.8 % (0-2); % Eosinophils 0.1 % (0-6); % Immature Granulocytes 0.7 % (0-0.5); % Lymphocytes 7.6 % (20.5-51.1); % Monocytes 5.3 % (1.7-9.3); % Neutrophils 85.5 % (42.2-75.2); Absolute Basophils 0.1 10^3/uL (0-0.2); Absolute Immature Granulocytes 0.1 10^3/uL (0-0.05); Absolute Lymphocytes 1.1 10^3/uL (1.2-3.4); Absolute Monocytes 0.8 10^3/uL (0.1-0.6); Absolute Neutrophils 12.6 10^3/uL (1.4-6.5); Nucleated Red Blood Cells % 0 %
[2024-02-26 11:10] LABS: ALT (SGPT) 22 U/L (0-35); AST (SGOT) 28 U/L (14-36); Albumin 3.7 g/dl (3.5-5.0); Alkaline Phosphatase 86 U/L (38-126); Blood Urea Nitrogen 9 mg/dl (7-17); Calcium 9.1 mg/dl (8.4-10.2); Carbon Dioxide 25 mmol/L (22-30); Chloride 103 mmol/L (98-107); Glucose 95 mg/dl (70-99); Potassium 3.2 mmol/L (3.5-5.1); Sodium 140 mmol/L (135-145); Total Bilirubin 0.4 mg/dl (0.2-1.3); Total Protein 5.7 g/dl (6.3-8.2); eGFR > 60.00
[2024-02-26 11:26] LABS: Free T4 1.26 ng/dl (0.78-2.19)
[2024-02-26 11:40] LABS: TSH 1.51 uIU/ml (0.47-4.68)
[2024-02-28 01:28] LABS: Total T3 (Sendout) 110 ng/dL (80-200)
== END ==
LOC: REG 09:37
PROVIDERS: ATTENDING PHYSICIAN Internal Medicine Hematology & Oncology; FAMILY PHYSICIAN Internal Medicine
DX: C50.511 Malignant neoplasm of lower-outer quadrant of right female breast (principal); R13.10 Dysphagia, unspecified
CPT/HCPCS: 36415; 80053; 84439; 84443; 84480; 85025

== ENCOUNTER → 2024-03-03 13:41 | Outpatient (REF) | payer MEDICARE, SELFPAY ==
[2024-03-03 15:00] LABS: % Basophils 2.6 % (0-2); % Eosinophils 0.8 % (0-6); % Immature Granulocytes 1.3 % (0-0.5); % Lymphocytes 31.4 % (20.5-51.1); % Monocytes 17.1 % (1.7-9.3); % Neutrophils 46.8 % (42.2-75.2); Absolute Basophils 0.1 10^3/uL (0-0.2); Absolute Immature Granulocytes 0.1 10^3/uL (0-0.05); Absolute Lymphocytes 1.2 10^3/uL (1.2-3.4); Absolute Monocytes 0.7 10^3/uL (0.1-0.6); Absolute Neutrophils 1.8 10^3/uL (1.4-6.5); Hematocrit 29.2 % (37.0-47.0); Hemoglobin 9.6 g/dL (12.0-16.0); Mean Corp Hgb Conc. 32.9 g/dL (33.0-37.0); Mean Corpuscular Hgb 30.5 pg (27.0-31.0); Mean Corpuscular Volume 92.7 fL (81.0-99.0); Mean Platelet Volume 8.9 fL (7.4-10.4); Nucleated Red Blood Cells % 0 %; Platelet Count 255 10^3/uL (130-400); Red Blood Cell Count 3.15 10^6/uL (4.20-5.40); Red Cell Dist. Width 15.9 % (11.5-14.5); White Blood Cell Count 3.9 10^3/uL (4.8-10.8)
[2024-03-03 15:43] LABS: ALT (SGPT) 21 U/L (0-35); AST (SGOT) 29 U/L (14-36); Albumin 3.6 g/dl (3.5-5.0); Alkaline Phosphatase 82 U/L (38-126); Blood Urea Nitrogen 15 mg/dl (7-17); Calcium 8.9 mg/dl (8.4-10.2); Carbon Dioxide 26 mmol/L (22-30); Chloride 102 mmol/L (98-107); Glucose 85 mg/dl (70-99); Potassium 3.3 mmol/L (3.5-5.1); Sodium 140 mmol/L (135-145); Total Bilirubin 0.4 mg/dl (0.2-1.3); Total Protein 5.7 g/dl (6.3-8.2); eGFR > 60.00
== END ==
LOC: REG 13:41
PROVIDERS: ATTENDING PHYSICIAN Internal Medicine Hematology & Oncology; FAMILY PHYSICIAN Internal Medicine
DX: C50.511 Malignant neoplasm of lower-outer quadrant of right female breast (principal)
CPT/HCPCS: 36415; 80053; 85025

== ENCOUNTER → 2024-03-10 12:44 | Outpatient (REF) | payer MEDICARE, SELFPAY ==
[2024-03-10 14:07] LABS: Hematocrit 27.6 % (37.0-47.0); Mean Corp Hgb Conc. 32.6 g/dL (33.0-37.0); Mean Corpuscular Hgb 29.5 pg (27.0-31.0); Mean Corpuscular Volume 90.5 fL (81.0-99.0); Mean Platelet Volume 9.2 fL (7.4-10.4); Platelet Count 159 10^3/uL (130-400); Red Blood Cell Count 3.05 10^6/uL (4.20-5.40); Red Cell Dist. Width 15.8 % (11.5-14.5); White Blood Cell Count 16.2 10^3/uL (4.8-10.8)
[2024-03-10 14:19] LABS: ALT (SGPT) 18 U/L (0-35); AST (SGOT) 21 U/L (14-36); Albumin 3.4 g/dl (3.5-5.0); Alkaline Phosphatase 84 U/L (38-126); Blood Urea Nitrogen 14 mg/dl (7-17); Calcium 8.8 mg/dl (8.4-10.2); Carbon Dioxide 25 mmol/L (22-30); Chloride 103 mmol/L (98-107); Glucose 83 mg/dl (70-99); Potassium 2.9 mmol/L (3.5-5.1); Sodium 137 mmol/L (135-145); Total Bilirubin 0.5 mg/dl (0.2-1.3); Total Protein 5.6 g/dl (6.3-8.2); eGFR > 60.00
[2024-03-10 14:34] LABS: Absolute Neutrophils -Man Diff 15.3 10^3/uL (1.4-6.5); Band Neutrophils 0 % (0-3); Eosinophils 1 % (0-6); Free T4 1.36 ng/dl (0.78-2.19); Lymphocytes 4 % (20-51); Monocytes 0 % (2-9); Segmented Neutrophils 95 % (42-75)
[2024-03-10 14:35] LABS: Anisocytosis 1+; Hypochromasia 1+; Normal RBC Morphology No; Platelets Checked Yes; Polychromasia 1+; Total Cells Counted 100
[2024-03-10 14:48] LABS: TSH 1.25 uIU/ml (0.47-4.68)
== END ==
LOC: REG 12:44
PROVIDERS: ATTENDING PHYSICIAN Internal Medicine Hematology & Oncology; FAMILY PHYSICIAN Internal Medicine
DX: C50.511 Malignant neoplasm of lower-outer quadrant of right female breast (principal); R13.10 Dysphagia, unspecified
CPT/HCPCS: 36415; 80053; 84439; 84443; 85025

== ENCOUNTER → 2024-03-17 13:32 | Outpatient (REF) | payer MEDICARE, SELFPAY ==
[2024-03-17 15:04] LABS: Hematocrit 26.2 % (37.0-47.0); Hemoglobin 8.8 g/dL (12.0-16.0); Mean Corp Hgb Conc. 33.6 g/dL (33.0-37.0); Mean Corpuscular Hgb 31.2 pg (27.0-31.0); Mean Corpuscular Volume 92.9 fL (81.0-99.0); Mean Platelet Volume 10.6 fL (7.4-10.4); Platelet Count 105 10^3/uL (130-400); Red Blood Cell Count 2.82 10^6/uL (4.20-5.40); Red Cell Dist. Width 15.3 % (11.5-14.5); White Blood Cell Count 22.2 10^3/uL (4.8-10.8)
[2024-03-17 15:06] LABS: Absolute Neutrophils -Man Diff 16.4 10^3/uL (1.4-6.5); Band Neutrophils 1 % (0-3); Eosinophils 1 % (0-6); Lymphocytes 9 % (20-51); Metamyelocytes 1 % (-); Monocytes 11 % (2-9); Myelocytes 4 % (-); Normal RBC Morphology Yes; Platelets Checked Yes; Segmented Neutrophils 73 % (42-75)
[2024-03-17 15:07] LABS: Dohle Bodies Occasional; Total Cells Counted 100
[2024-03-17 16:02] LABS: ALT (SGPT) 16 U/L (0-35); AST (SGOT) 24 U/L (14-36); Albumin 3.6 g/dl (3.5-5.0); Alkaline Phosphatase 117 U/L (38-126); Blood Urea Nitrogen 8 mg/dl (7-17); Calcium 9.4 mg/dl (8.4-10.2); Carbon Dioxide 27 mmol/L (22-30); Chloride 102 mmol/L (98-107); Glucose 76 mg/dl (70-99); Sodium 137 mmol/L (135-145); Total Bilirubin < 0.1 mg/dl (0.2-1.3); Total Protein 5.6 g/dl (6.3-8.2); eGFR > 60.00
== END ==
LOC: REG 13:32
PROVIDERS: ATTENDING PHYSICIAN Internal Medicine Hematology & Oncology; FAMILY PHYSICIAN Internal Medicine
DX: C50.511 Malignant neoplasm of lower-outer quadrant of right female breast (principal)
CPT/HCPCS: 36415; 80053; 85025

== ENCOUNTER → 2024-03-24 11:59 | Outpatient (REF) | payer MEDICARE, SELFPAY ==
[2024-03-24 13:30] LABS: % Basophils 0.8 % (0-2); % Immature Granulocytes 2.1 % (0-0.5); % Lymphocytes 10.4 % (20.5-51.1); % Monocytes 10.1 % (1.7-9.3); % Neutrophils 76.6 % (42.2-75.2); Absolute Basophils 0.1 10^3/uL (0-0.2); Absolute Immature Granulocytes 0.3 10^3/uL (0-0.05); Absolute Lymphocytes 1.5 10^3/uL (1.2-3.4); Absolute Monocytes 1.4 10^3/uL (0.1-0.6); Absolute Neutrophils 10.9 10^3/uL (1.4-6.5); Hematocrit 31.5 % (37.0-47.0); Hemoglobin 10.3 g/dL (12.0-16.0); Mean Corp Hgb Conc. 32.7 g/dL (33.0-37.0); Mean Corpuscular Hgb 30.8 pg (27.0-31.0); Mean Corpuscular Volume 94.3 fL (81.0-99.0); Mean Platelet Volume 8.7 fL (7.4-10.4); Nucleated Red Blood Cells % 0 %; Platelet Count 381 10^3/uL (130-400); Red Blood Cell Count 3.34 10^6/uL (4.20-5.40); White Blood Cell Count 14.2 10^3/uL (4.8-10.8)
[2024-03-24 14:14] LABS: ALT (SGPT) 18 U/L (0-35); AST (SGOT) 25 U/L (14-36); Albumin 4.2 g/dl (3.5-5.0); Alkaline Phosphatase 125 U/L (38-126); Blood Urea Nitrogen 15 mg/dl (7-17); Calcium 9.5 mg/dl (8.4-10.2); Carbon Dioxide 24 mmol/L (22-30); Chloride 99 mmol/L (98-107); Glucose 84 mg/dl (70-99); Potassium 5.2 mmol/L (3.5-5.1); Sodium 134 mmol/L (135-145); Total Bilirubin 0.2 mg/dl (0.2-1.3); Total Protein 6.3 g/dl (6.3-8.2); eGFR > 60.00
[2024-03-24 14:24] LABS: Free T4 1.12 ng/dl (0.78-2.19)
== END ==
LOC: REG 11:59
PROVIDERS: ATTENDING PHYSICIAN Internal Medicine Hematology & Oncology; FAMILY PHYSICIAN Internal Medicine
DX: C50.511 Malignant neoplasm of lower-outer quadrant of right female breast (principal); R13.10 Dysphagia, unspecified
CPT/HCPCS: 36415; 80053; 84439; 84443; 84480; 85025

== ENCOUNTER → 2024-04-02 12:24 | Outpatient (REF) | payer MEDICARE, SELFPAY ==
[2024-04-02 13:27] LABS: Hematocrit 26.6 % (37.0-47.0); Hemoglobin 8.9 g/dL (12.0-16.0); Mean Corp Hgb Conc. 33.5 g/dL (33.0-37.0); Mean Corpuscular Hgb 29.9 pg (27.0-31.0); Mean Corpuscular Volume 89.3 fL (81.0-99.0); Mean Platelet Volume 9.4 fL (7.4-10.4); Platelet Count 172 10^3/uL (130-400); Red Blood Cell Count 2.98 10^6/uL (4.20-5.40); Red Cell Dist. Width 16.3 % (11.5-14.5); White Blood Cell Count 1.4 10^3/uL (4.8-10.8)
[2024-04-02 13:48] LABS: ALT (SGPT) 13 U/L (0-35); AST (SGOT) 17 U/L (14-36); Albumin 3.6 g/dl (3.5-5.0); Alkaline Phosphatase 91 U/L (38-126); Blood Urea Nitrogen 18 mg/dl (7-17); Calcium 9.2 mg/dl (8.4-10.2); Carbon Dioxide 20 mmol/L (22-30); Chloride 103 mmol/L (98-107); Glucose 96 mg/dl (70-99); Potassium 3.4 mmol/L (3.5-5.1); Sodium 134 mmol/L (135-145); Total Bilirubin 0.5 mg/dl (0.2-1.3); Total Protein 5.8 g/dl (6.3-8.2); eGFR > 60.00
== END ==
LOC: REG 12:24
PROVIDERS: ATTENDING PHYSICIAN Internal Medicine Hematology & Oncology; FAMILY PHYSICIAN Internal Medicine
DX: C50.511 Malignant neoplasm of lower-outer quadrant of right female breast (principal)
CPT/HCPCS: 36415; 80053; 85027

== ENCOUNTER → 2024-04-07 13:52 | Outpatient (REF) | payer MEDICARE, SELFPAY ==
[2024-04-07 16:03] LABS: ALT (SGPT) 16 U/L (0-35); AST (SGOT) 23 U/L (14-36); Albumin 3.6 g/dl (3.5-5.0); Alkaline Phosphatase 152 U/L (38-126); Blood Urea Nitrogen 8 mg/dl (7-17); Calcium 9.3 mg/dl (8.4-10.2); Carbon Dioxide 24 mmol/L (22-30); Chloride 102 mmol/L (98-107); Glucose 72 mg/dl (70-99); Potassium 2.7 mmol/L (3.5-5.1); Sodium 137 mmol/L (135-145); Total Bilirubin 0.1 mg/dl (0.2-1.3); Total Protein 5.7 g/dl (6.3-8.2); eGFR > 60.00
[2024-04-07 16:13] LABS: Free T4 1.33 ng/dl (0.78-2.19)
[2024-04-07 16:27] LABS: TSH 2.54 uIU/ml (0.47-4.68)
[2024-04-07 17:48] LABS: % Basophils 0.3 % (0-2); % Immature Granulocytes 9.8 % (0-0.5); % Monocytes 10.8 % (1.7-9.3); % Neutrophils 74.1 % (42.2-75.2); Absolute Basophils 0.1 10^3/uL (0-0.2); Absolute Immature Granulocytes 3.4 10^3/uL (0-0.05); Absolute Lymphocytes 1.7 10^3/uL (1.2-3.4); Absolute Monocytes 3.7 10^3/uL (0.1-0.6); Absolute Neutrophils 25.5 10^3/uL (1.4-6.5); Hematocrit 26.5 % (37.0-47.0); Mean Corpuscular Hgb 31.3 pg (27.0-31.0); Mean Platelet Volume 9.8 fL (7.4-10.4); Nucleated Red Blood Cells % 0.1 %; Platelet Count 107 10^3/uL (130-400); Red Blood Cell Count 2.88 10^6/uL (4.20-5.40); Red Cell Dist. Width 15.9 % (11.5-14.5); White Blood Cell Count 34.4 10^3/uL (4.8-10.8)
[2024-04-10 03:24] LABS: Total T3 (Sendout) 118 ng/dL (80-200)
== END ==
LOC: REG 13:52
PROVIDERS: ATTENDING PHYSICIAN Internal Medicine Hematology & Oncology; FAMILY PHYSICIAN Internal Medicine
DX: C50.511 Malignant neoplasm of lower-outer quadrant of right female breast (principal); R13.10 Dysphagia, unspecified
CPT/HCPCS: 36415; 80053; 84439; 84443; 84480; 85025

== ENCOUNTER → 2024-04-09 11:32 | Outpatient (REF) | payer MEDICARE, SELFPAY ==
[2024-04-09 11:15] LABS: ALT (SGPT) 16 U/L (0-35); AST (SGOT) 19 U/L (14-36); Albumin 3.2 g/dl (3.5-5.0); Alkaline Phosphatase 135 U/L (38-126); Blood Urea Nitrogen 9 mg/dl (7-17); Calcium 8.8 mg/dl (8.4-10.2); Carbon Dioxide 23 mmol/L (22-30); Chloride 108 mmol/L (98-107); Glucose 91 mg/dl (70-99); Magnesium 1.8 mg/dl (1.6-2.3); Potassium 3.9 mmol/L (3.5-5.1); Sodium 139 mmol/L (135-145); Total Bilirubin < 0.1 mg/dl (0.2-1.3); Total Protein 5.1 g/dl (6.3-8.2); eGFR > 60.00
[2024-04-09 11:31] LABS: Free T4 1.22 ng/dl (0.78-2.19)
[2024-04-09 11:45] LABS: TSH 1.65 uIU/ml (0.47-4.68)
[2024-04-10 23:10] LABS: Total T3 (Sendout) 116 ng/dL (80-200)
== END ==
LOC: OIDL 11:32
PROVIDERS: ATTENDING PHYSICIAN Nurse Practitioner Acute Care
DX: C50.511 Malignant neoplasm of lower-outer quadrant of right female breast (principal); R53.83 Other fatigue; R79.9 Abnormal finding of blood chemistry, unspecified; K59.00 Constipation, unspecified; E87.1 Hypo-osmolality and hyponatremia
CPT/HCPCS: 80053; 83735; 84439; 84443; 84480

== ENCOUNTER → 2024-04-14 12:33 | Outpatient (REF) | payer MEDICARE, SELFPAY ==
[2024-04-14 14:16] LABS: % Basophils 0.8 % (0-2); % Eosinophils 0.1 % (0-6); % Immature Granulocytes 2.7 % (0-0.5); % Lymphocytes 8.2 % (20.5-51.1); % Monocytes 12.5 % (1.7-9.3); % Neutrophils 75.7 % (42.2-75.2); Absolute Basophils 0.1 10^3/uL (0-0.2); Absolute Immature Granulocytes 0.4 10^3/uL (0-0.05); Absolute Lymphocytes 1.2 10^3/uL (1.2-3.4); Absolute Monocytes 1.8 10^3/uL (0.1-0.6); Absolute Neutrophils 11.1 10^3/uL (1.4-6.5); Hematocrit 26.1 % (37.0-47.0); Hemoglobin 8.6 g/dL (12.0-16.0); Mean Corpuscular Hgb 30.1 pg (27.0-31.0); Mean Corpuscular Volume 91.3 fL (81.0-99.0); Mean Platelet Volume 8.6 fL (7.4-10.4); Nucleated Red Blood Cells % 0.1 %; Platelet Count 328 10^3/uL (130-400); Red Blood Cell Count 2.86 10^6/uL (4.20-5.40); Red Cell Dist. Width 17.3 % (11.5-14.5); White Blood Cell Count 14.6 10^3/uL (4.8-10.8)
[2024-04-14 15:17] LABS: ALT (SGPT) 18 U/L (0-35); AST (SGOT) 25 U/L (14-36); Albumin 3.5 g/dl (3.5-5.0); Alkaline Phosphatase 115 U/L (38-126); Blood Urea Nitrogen 11 mg/dl (7-17); Calcium 8.9 mg/dl (8.4-10.2); Carbon Dioxide 23 mmol/L (22-30); Chloride 105 mmol/L (98-107); Glucose 79 mg/dl (70-99); Potassium 3.8 mmol/L (3.5-5.1); Sodium 138 mmol/L (135-145); Total Bilirubin 0.2 mg/dl (0.2-1.3); Total Protein 5.6 g/dl (6.3-8.2); eGFR > 60.00
== END ==
LOC: REG 12:33
PROVIDERS: ATTENDING PHYSICIAN Internal Medicine Hematology & Oncology; FAMILY PHYSICIAN Internal Medicine
DX: C50.111 Malignant neoplasm of central portion of right female breast (principal)
CPT/HCPCS: 36415; 80053; 85025

== ENCOUNTER → 2024-04-22 12:54 | Outpatient (REF) | payer MEDICARE, SELFPAY ==
[2024-04-22 15:43] LABS: ALT (SGPT) 14 U/L (0-35); AST (SGOT) 19 U/L (14-36); Albumin 3.4 g/dl (3.5-5.0); Alkaline Phosphatase 102 U/L (38-126); Blood Urea Nitrogen 16 mg/dl (7-17); Calcium 8.7 mg/dl (8.4-10.2); Carbon Dioxide 20 mmol/L (22-30); Chloride 106 mmol/L (98-107); Glucose 84 mg/dl (70-99); Hematocrit 24.4 % (37.0-47.0); Hemoglobin 7.9 g/dL (12.0-16.0); Mean Corp Hgb Conc. 32.4 g/dL (33.0-37.0); Mean Corpuscular Volume 95.7 fL (81.0-99.0); Mean Platelet Volume 9.8 fL (7.4-10.4); Platelet Count 117 10^3/uL (130-400); Potassium 3.5 mmol/L (3.5-5.1); Red Blood Cell Count 2.55 10^6/uL (4.20-5.40); Red Cell Dist. Width 17.1 % (11.5-14.5); Sodium 138 mmol/L (135-145); Total Bilirubin 0.4 mg/dl (0.2-1.3); Total Protein 5.5 g/dl (6.3-8.2); White Blood Cell Count 7.9 10^3/uL (4.8-10.8); eGFR > 60.00
[2024-04-22 16:20] LABS: TSH 1.15 uIU/ml (0.47-4.68)
[2024-04-22 16:38] LABS: Normal RBC Morphology No; Platelets Checked Yes
[2024-04-22 16:39] LABS: Absolute Neutrophils -Man Diff 7.5 10^3/uL (1.4-6.5); Band Neutrophils 0 % (0-3); Dohle Bodies 1+; Lymphocytes 2 % (20-51); Monocytes 2 % (2-9); Ovalocytes 1+; Poikilocytosis Slight; Segmented Neutrophils 96 % (42-75); Total Cells Counted 100
== END ==
LOC: REG 12:54
PROVIDERS: ATTENDING PHYSICIAN Internal Medicine Hematology & Oncology; FAMILY PHYSICIAN Internal Medicine
DX: C50.511 Malignant neoplasm of lower-outer quadrant of right female breast (principal); R13.10 Dysphagia, unspecified
CPT/HCPCS: 36415; 80053; 84439; 84443; 84480; 85025

== ENCOUNTER 2024-04-28 08:28 | Outpatient (RCR) | payer MEDICARE, SELFPAY ==
[2024-04-28] MEDS: TYLENOL 650 MG PO (09:08)
[2024-04-28 09:10] VITALS: BP 119/50
[2024-04-28 09:31] VITALS: BP 111/46
[2024-04-28 11:20] VITALS: BP 111/49
== END 2024-05-08 23:59 | disposition home or self-care (01) ==
LOC: OID 08:28
PROVIDERS: ATTENDING PHYSICIAN Internal Medicine Hematology & Oncology
DX: C50.511 Malignant neoplasm of lower-outer quadrant of right female breast (principal); Z17.1 Estrogen receptor negative status [ER-]; I69.30 Unspecified sequelae of cerebral infarction
CPT/HCPCS: 36430; 86850; 86900; 86901; 86920; P9016

== ENCOUNTER → 2024-04-30 13:02 | Outpatient (REF) | payer MEDICARE, SELFPAY ==
[2024-04-30 14:02] LABS: Hematocrit 29.2 % (37.0-47.0); Hemoglobin 9.5 g/dL (12.0-16.0); Mean Corp Hgb Conc. 32.5 g/dL (33.0-37.0); Mean Corpuscular Hgb 30.4 pg (27.0-31.0); Mean Corpuscular Volume 93.3 fL (81.0-99.0); Mean Platelet Volume 9.2 fL (7.4-10.4); Platelet Count 183 10^3/uL (130-400); Red Blood Cell Count 3.13 10^6/uL (4.20-5.40); Red Cell Dist. Width 17.2 % (11.5-14.5); White Blood Cell Count 22.2 10^3/uL (4.8-10.8)
[2024-04-30 14:21] LABS: ALT (SGPT) 17 U/L (0-35); AST (SGOT) 23 U/L (14-36); Albumin 3.6 g/dl (3.5-5.0); Alkaline Phosphatase 107 U/L (38-126); Blood Urea Nitrogen 10 mg/dl (7-17); Calcium 8.9 mg/dl (8.4-10.2); Carbon Dioxide 24 mmol/L (22-30); Chloride 105 mmol/L (98-107); Glucose 92 mg/dl (70-99); Sodium 142 mmol/L (135-145); Total Bilirubin 0.2 mg/dl (0.2-1.3); Total Protein 5.7 g/dl (6.3-8.2); eGFR > 60.00
[2024-04-30 14:31] LABS: Absolute Neutrophils -Man Diff 18.4 10^3/uL (1.4-6.5); Acanthocytes FEW; Anisocytosis 1+; Band Neutrophils 4 % (0-3); Hypochromasia 1+; Lymphocytes 7 % (20-51); Metamyelocytes 1 % (-); Monocytes 9 % (2-9); Normal RBC Morphology No; Ovalocytes 1+; Platelets Checked Yes; Polychromasia 1+; Segmented Neutrophils 79 % (42-75); Total Cells Counted 100
== END ==
LOC: REG 13:02
PROVIDERS: ATTENDING PHYSICIAN Internal Medicine Hematology & Oncology; FAMILY PHYSICIAN Internal Medicine
DX: C50.511 Malignant neoplasm of lower-outer quadrant of right female breast (principal)
CPT/HCPCS: 36415; 80053; 85025

== ENCOUNTER → 2024-05-04 13:16 | Outpatient (REF) | payer MEDICARE, SELFPAY ==
[2024-05-04 14:02] LABS: % Basophils 0.5 % (0-2); % Immature Granulocytes 1.2 % (0-0.5); % Lymphocytes 4.5 % (20.5-51.1); % Monocytes 10.3 % (1.7-9.3); % Neutrophils 83.5 % (42.2-75.2); Absolute Basophils 0.1 10^3/uL (0-0.2); Absolute Immature Granulocytes 0.2 10^3/uL (0-0.05); Absolute Lymphocytes 0.7 10^3/uL (1.2-3.4); Absolute Monocytes 1.6 10^3/uL (0.1-0.6); Absolute Neutrophils 12.9 10^3/uL (1.4-6.5); Hematocrit 32.6 % (37.0-47.0); Hemoglobin 10.4 g/dL (12.0-16.0); Mean Corp Hgb Conc. 31.9 g/dL (33.0-37.0); Mean Corpuscular Hgb 30.9 pg (27.0-31.0); Mean Corpuscular Volume 96.7 fL (81.0-99.0); Mean Platelet Volume 8.7 fL (7.4-10.4); Nucleated Red Blood Cells % 0 %; Platelet Count 322 10^3/uL (130-400); Red Blood Cell Count 3.37 10^6/uL (4.20-5.40); Red Cell Dist. Width 17.2 % (11.5-14.5); White Blood Cell Count 15.5 10^3/uL (4.8-10.8)
[2024-05-04 14:23] LABS: ALT (SGPT) 16 U/L (0-35); AST (SGOT) 22 U/L (14-36); Albumin 3.7 g/dl (3.5-5.0); Alkaline Phosphatase 103 U/L (38-126); Blood Urea Nitrogen 10 mg/dl (7-17); Calcium 8.9 mg/dl (8.4-10.2); Carbon Dioxide 25 mmol/L (22-30); Chloride 106 mmol/L (98-107); Glucose 110 mg/dl (70-99); Sodium 140 mmol/L (135-145); Total Bilirubin 0.3 mg/dl (0.2-1.3); Total Protein 5.9 g/dl (6.3-8.2); eGFR > 60.00
[2024-05-04 14:43] LABS: Free T4 1.15 ng/dl (0.78-2.19)
[2024-05-04 14:57] LABS: TSH 2.03 uIU/ml (0.47-4.68)
== END ==
LOC: REG 13:16
PROVIDERS: ATTENDING PHYSICIAN Internal Medicine Hematology & Oncology; FAMILY PHYSICIAN Internal Medicine
DX: C50.511 Malignant neoplasm of lower-outer quadrant of right female breast (principal); R13.10 Dysphagia, unspecified
CPT/HCPCS: 36415; 80053; 84439; 84443; 84480; 85025

== ENCOUNTER → 2024-05-12 11:21 | Outpatient (REF) | payer MEDICARE, SELFPAY ==
[2024-05-12 12:39] LABS: ALT (SGPT) 14 U/L (0-35); AST (SGOT) 20 U/L (14-36); Albumin 3.5 g/dl (3.5-5.0); Alkaline Phosphatase 103 U/L (38-126); Blood Urea Nitrogen 15 mg/dl (7-17); Calcium 8.8 mg/dl (8.4-10.2); Carbon Dioxide 21 mmol/L (22-30); Chloride 105 mmol/L (98-107); Glucose 88 mg/dl (70-99); Potassium 4.2 mmol/L (3.5-5.1); Sodium 135 mmol/L (135-145); Total Bilirubin 0.3 mg/dl (0.2-1.3); Total Protein 5.5 g/dl (6.3-8.2); eGFR > 60.00
[2024-05-12 12:45] LABS: Hematocrit 27.3 % (37.0-47.0); Hemoglobin 8.7 g/dL (12.0-16.0); Mean Corp Hgb Conc. 31.9 g/dL (33.0-37.0); Mean Corpuscular Hgb 30.6 pg (27.0-31.0); Mean Corpuscular Volume 96.1 fL (81.0-99.0); Mean Platelet Volume 8.9 fL (7.4-10.4); Platelet Count 127 10^3/uL (130-400); Red Blood Cell Count 2.84 10^6/uL (4.20-5.40); Red Cell Dist. Width 16.2 % (11.5-14.5); White Blood Cell Count 31.3 10^3/uL (4.8-10.8)
[2024-05-12 13:33] LABS: Absolute Neutrophils -Man Diff 30.3 10^3/uL (1.4-6.5); Band Neutrophils 0 % (0-3); Lymphocytes 1 % (20-51); Monocytes 2 % (2-9); Normal RBC Morphology No; Platelets Checked Yes; Segmented Neutrophils 97 % (42-75)
[2024-05-12 13:34] LABS: Anisocytosis Slight; Hypersegmented Neutrophil 2+; Hypochromasia 1+; Ovalocytes 1+; Polychromasia 1+; Total Cells Counted 100
== END ==
LOC: REG 11:21
PROVIDERS: ATTENDING PHYSICIAN Internal Medicine Hematology & Oncology; FAMILY PHYSICIAN Internal Medicine
DX: C50.511 Malignant neoplasm of lower-outer quadrant of right female breast (principal)
CPT/HCPCS: 36415; 80053; 85025

== ENCOUNTER → 2024-06-17 10:40 | Outpatient (REF) | payer MEDICARE, SELFPAY ==
[2024-06-17 11:49] LABS: % Basophils 2.1 % (0-2); % Eosinophils 1.5 % (0-6); % Immature Granulocytes 0.3 % (0-0.5); % Lymphocytes 23.2 % (20.5-51.1); % Monocytes 15.8 % (1.7-9.3); % Neutrophils 57.1 % (42.2-75.2); Absolute Basophils 0.1 10^3/uL (0-0.2); Absolute Eosinophils 0.1 10^3/uL (0-0.7); Absolute Lymphocytes 0.8 10^3/uL (1.2-3.4); Absolute Monocytes 0.5 10^3/uL (0.1-0.6); Absolute Neutrophils 1.9 10^3/uL (1.4-6.5); Hematocrit 30.3 % (37.0-47.0); Hemoglobin 9.8 g/dL (12.0-16.0); Mean Corp Hgb Conc. 32.3 g/dL (33.0-37.0); Mean Corpuscular Volume 95.9 fL (81.0-99.0); Mean Platelet Volume 8.9 fL (7.4-10.4); Nucleated Red Blood Cells % 0 %; Platelet Count 189 10^3/uL (130-400); Red Blood Cell Count 3.16 10^6/uL (4.20-5.40); Red Cell Dist. Width 13.8 % (11.5-14.5); White Blood Cell Count 3.4 10^3/uL (4.8-10.8)
[2024-06-17 12:18] LABS: ALT (SGPT) 21 U/L (0-35); AST (SGOT) 32 U/L (14-36); Albumin 3.7 g/dl (3.5-5.0); Alkaline Phosphatase 93 U/L (38-126); Blood Urea Nitrogen 13 mg/dl (7-17); Calcium 9.3 mg/dl (8.4-10.2); Carbon Dioxide 24 mmol/L (22-30); Chloride 104 mmol/L (98-107); Glucose 89 mg/dl (70-99); Sodium 135 mmol/L (135-145); Total Bilirubin 0.3 mg/dl (0.2-1.3); eGFR > 60.00
[2024-06-17 12:40] LABS: TSH Reflex To Free T4 0.73 uIU/ml (0.47-4.68)
== END ==
LOC: REG 10:40
PROVIDERS: ATTENDING PHYSICIAN Internal Medicine Hematology & Oncology
DX: C50.511 Malignant neoplasm of lower-outer quadrant of right female breast (principal); R53.83 Other fatigue; R79.9 Abnormal finding of blood chemistry, unspecified; K59.00 Constipation, unspecified; E87.1 Hypo-osmolality and hyponatremia
CPT/HCPCS: 36415; 80053; 84443; 85025

== ENCOUNTER → 2024-06-24 14:08 | Outpatient (REF) | payer MEDICARE, SELFPAY | LOC: WDC 14:08 | PROVIDERS: ATTENDING PHYSICIAN Surgery; FAMILY PHYSICIAN Internal Medicine | DX: C50.411 Malignant neoplasm of upper-outer quadrant of right female breast (principal); R92.8 Other abnormal and inconclusive findings on diagnostic imaging of breast | CPT/HCPCS: 76642 ==

== ENCOUNTER → 2024-07-07 13:06 | Outpatient (REF) | payer MEDICARE, SELFPAY ==
[2024-07-07 14:09] LABS: % Basophils 1.8 % (0-2); % Eosinophils 2.1 % (0-6); % Immature Granulocytes 0.3 % (0-0.5); % Lymphocytes 25.6 % (20.5-51.1); % Neutrophils 60.2 % (42.2-75.2); Absolute Basophils 0.1 10^3/uL (0-0.2); Absolute Eosinophils 0.1 10^3/uL (0-0.7); Absolute Monocytes 0.4 10^3/uL (0.1-0.6); Absolute Neutrophils 2.4 10^3/uL (1.4-6.5); Hematocrit 33.9 % (37.0-47.0); Hemoglobin 10.7 g/dL (12.0-16.0); Mean Corp Hgb Conc. 31.6 g/dL (33.0-37.0); Mean Corpuscular Hgb 29.4 pg (27.0-31.0); Mean Corpuscular Volume 93.1 fL (81.0-99.0); Mean Platelet Volume 8.5 fL (7.4-10.4); Nucleated Red Blood Cells % 0 %; Platelet Count 175 10^3/uL (130-400); Red Blood Cell Count 3.64 10^6/uL (4.20-5.40); Red Cell Dist. Width 12.8 % (11.5-14.5); White Blood Cell Count 3.9 10^3/uL (4.8-10.8)
[2024-07-07 17:13] LABS: Free T4 0.39 ng/dl (0.78-2.19)
[2024-07-07 17:48] LABS: ALT (SGPT) 23 U/L (0-35); AST (SGOT) 33 U/L (14-36); Albumin 3.7 g/dl (3.5-5.0); Alkaline Phosphatase 89 U/L (38-126); Blood Urea Nitrogen 10 mg/dl (7-17); Calcium 8.8 mg/dl (8.4-10.2); Carbon Dioxide 25 mmol/L (22-30); Chloride 103 mmol/L (98-107); Glucose 82 mg/dl (70-99); Potassium 4.3 mmol/L (3.5-5.1); Sodium 134 mmol/L (135-145); Total Bilirubin 0.2 mg/dl (0.2-1.3); Total Protein 5.9 g/dl (6.3-8.2); eGFR > 60.00
== END ==
LOC: REG 13:06
PROVIDERS: ATTENDING PHYSICIAN Internal Medicine Hematology & Oncology; FAMILY PHYSICIAN Internal Medicine
DX: C50.511 Malignant neoplasm of lower-outer quadrant of right female breast (principal); R53.83 Other fatigue; R79.9 Abnormal finding of blood chemistry, unspecified; K59.00 Constipation, unspecified; E87.1 Hypo-osmolality and hyponatremia
CPT/HCPCS: 36415; 80053; 84439; 84443; 85025

== ENCOUNTER 2024-07-16 09:29 | Emergency (ER) | payer MEDICARE, SELFPAY ==
[2024-07-16 09:30] VITALS: BP 105/65
[2024-07-16 09:53] LABS: % Basophils 0.9 % (0-2); % Lymphocytes 25.6 % (20.5-51.1); % Monocytes 17.8 % (1.7-9.3); % Neutrophils 55.7 % (42.2-75.2); Absolute Lymphocytes 0.9 10^3/uL (1.2-3.4); Absolute Monocytes 0.6 10^3/uL (0.1-0.6); Absolute Neutrophils 1.9 10^3/uL (1.4-6.5); Hematocrit 33.3 % (37.0-47.0); Hemoglobin 10.9 g/dL (12.0-16.0); Mean Corp Hgb Conc. 32.7 g/dL (33.0-37.0); Mean Corpuscular Hgb 29.9 pg (27.0-31.0); Mean Corpuscular Volume 91.5 fL (81.0-99.0); Mean Platelet Volume 8.4 fL (7.4-10.4); Nucleated Red Blood Cells % 0 %; Platelet Count 127 10^3/uL (130-400); Red Blood Cell Count 3.64 10^6/uL (4.20-5.40); Red Cell Dist. Width 12.9 % (11.5-14.5); White Blood Cell Count 3.3 10^3/uL (4.8-10.8)
[2024-07-16 10:07] LABS: COVID-19 Antigen Positive (Negative)
[2024-07-16 10:09] LABS: ALT (SGPT) 26 U/L (0-35); AST (SGOT) 42 U/L (14-36); Albumin 3.5 g/dl (3.5-5.0); Alkaline Phosphatase 84 U/L (38-126); Blood Urea Nitrogen 16 mg/dl (7-17); Calcium 8.7 mg/dl (8.4-10.2); Carbon Dioxide 25 mmol/L (22-30); Chloride 104 mmol/L (98-107); Glucose 96 mg/dl (70-99); Potassium 3.5 mmol/L (3.5-5.1); Sodium 133 mmol/L (135-145); Total Bilirubin 0.3 mg/dl (0.2-1.3); Total Protein 5.9 g/dl (6.3-8.2); eGFR > 60.00
--- NOTE | 2024-07-16 10:51 | ED.GENMED ---
History of Present Illness
General
Chief Complaint: Weakness
Source: patient and spouse
Exam Limitations: none
Time Seen by Provider: 07/16/24 10:21
Nursing documentation reviewed up to this point in time: agreed with
History of Present Illness
History of Present Illness:
78 yo female w h/o hypothyroid, post chemo for breast CA, scheduled for surgery in 4 days, developed sinus stuffiness one week ago, cough 2 days ago, past few days has felt very fatigued. This a.m. states he was helping her walk back to bed
from bathroom when she faltered, eyes were glazed over 'she was out of it but she was still talking a little bit,' he lowered her to the floor, and a few seconds later she came around and after about a minute was back to her baseline. She remembers
feeling faint but she does not remember getting to the floor.
She denies CP, SOB. Denies abd pain, n/v/d/c.
Past History
Past History
ED Past Medical History: Cancer (Breast), CVA, Hypothyroidism and Other
ED Past Surgical History: Cardiac
Patient has exhibited threatening behavior?: No
Social History
Tobacco: Non-smoker
Alcohol: Occasional
Drug: None
Personal:
Living: with family
Review of Systems
Review of Systems
Allergies reviewed?: Yes
All Other Systems: ROS reviewed and negative except as documented in HPI and ROS
Constitutional: Reports fatigue; Denies fever
EENT: Reports other (sinus stuffiness); Denies sore throat
Respiratory: Reports cough; Denies trouble breathing
Cardiac: Reports syncope; Denies chest pain, diaphoresis or palpitations
ABD/GI: Denies abdominal pain, nausea, vomiting or diarrhea
: Denies dysuria or difficulty voiding
Musculoskeletal: Reports no symptoms
Skin: Reports no symptoms
Neurological: Reports no symptoms
Phy Exam
Physical Exam
Physical Exam:
GENERAL: No acute distress. A&Ox3.
CONSTITUTIONAL: Afebrile.
EYES: clear, conjunctivae normal
ENMT: moist mucus membranes, Pharynx nl, sinus stuffiness voice, non tender to percussion
RESPIRATORY: Regular respirations, nonlabored, lungs clear.
CARDIOVASCULAR: Regular rate and rhythm, no murmurs, no rubs.
GI: Soft, nontender, normal BS
MUSCULOSKELETAL: Moves with ease. Well perfused.
SKIN: Warm, dry, pink
PSYCH: Normal mood and affect. Well kept, interactive and appropriate
NEUROLOGIC: Awake, alert and oriented. No focal neurological deficits
Course
Orders/Labs/Results
Orders:
Orders
07/16/24 09:42
COVID-19 Antigen Urgent
Source: Nasal Swab
Complete Blood Count/With Diff Urgent
Comprehensive Metabolic Panel Urgent
Free T4 Urgent
TSH Reflex To Free T4 Urgent
Influenza A+B Rapid Molecular Urgent
JASON Source: Nasal Swab
Specimen Description:
Abnormal Lab Results
07/16/24
09:42
WBC 3.3 L 10^3/uL
(4.8-10.8)
RBC 3.64 L 10^6/uL
(4.20-5.40)
Hgb 10.9 L g/dL
(12.0-16.0)
Hct 33.3 L %
(37.0-47.0)
MCHC 32.7 L g/dL
(33.0-37.0)
Plt Count 127 L D 10^3/uL
(130-400)
Absolute Lymphs (auto) 0.9 L 10^3/uL
(1.2-3.4)
Monocytes % 17.8 H %
(1.7-9.3)
Sodium 133 L mmol/L
(135-145)
AST 42 H U/L
(14-36)
Total Protein 5.9 L g/dl
(6.3-8.2)
TSH (Reflex) 65.60 H uIU/ml
(0.47-4.68)
Free T4 0.27 L ng/dl
(0.78-2.19)
SARS-CoV-2 Antigen Positive A
(Negative)
07/16/24 09:42
07/16/24 09:42
Vital Signs
Initial and Last Documented VS:
Initial Vital Signs
Temp Pulse Resp BP Pulse Ox
99.1 F 66 16 105/65 99
07/16/24 09:30 07/16/24 09:30 07/16/24 09:30 07/16/24 09:30 07/16/24 09:30
Last Documented Vital Signs
Temp Pulse Resp BP Pulse Ox
97.7 F 60 16 104/50 99
07/16/24 11:09 07/16/24 12:07 07/16/24 12:07 07/16/24 12:07 07/16/24 12:07
MDM/Problems Addressed
Differential Diagnosis Includes:
Covid, flu, dehydration, thyroid disorder
MDM/Problems Addressed:
78 yo female w h/o hypothyroid, post chemo for breast CA, scheduled for surgery in 4 days, developed sinus stuffiness one week ago, cough 2 days ago, past few days has felt very fatigued. This a.m. states he was helping her walk back to bed
from bathroom when she faltered, eyes were glazed over 'she was out of it but she was still talking a little bit,' he lowered her to the floor, and a few seconds later she came around and after about a minute was back to her baseline. She remembers
feeling faint but she does not remember getting to the floor.
She denies CP, SOB. Denies abd pain, n/v/d/c.
Afebrile, NAD
10:30 a.m.
CBC with no clinically significant abnormality, her baseline
CMP: No clinically significant abnormality.
TSH 65.60 up from 26.90 on 07/07/24. Pt states she was started on Katruda since November 2023, started on Levothyroxine 3 days ago
Covid positive
Pt non toxic appearing and stable for discharge
Consulted Oncology Dr. Cadena who referred to Endocrinology
Consulted Dr. Whitten Endocrinology who recommends doubling the Levothyroxine to 50 mcg daily and repeat TSH in 6 weeks.
Pt will relay this info to her doctors
*Critical Care Note
Total Time (30-74mins, 75-104mins- exclusive of procedures): Not Applicable
ED Attending Note
-
Portions of this chart may have been created with voice recognition software.� Occasional wrong word or��sound alike� substitutions may have occurred due to the inherent limitations of voice recognition software.
Discharge Plan
Departure
Patient Disposition: Home (Routine Discharge)
Date of Disposition: 07/16/24
Time of Disposition: 10:48
Patient with high blood pressure during this ER visit?: No
Condition: Fair
Covid-19: Confirmed COVID-19
Discharge Problem:
COVID-19
Instructions: COVID-19 in adults - Discharge instructions
Prescriptions:
No Action
baclofen 10 MG tablet
10 mg PO TID
ramipril 10 MG capsule
10 mg PO QPM
aspirin 81 MG tablet
81 mg PO DAILY
rosuvastatin [Crestor] 10 MG tablet
10 mg PO QPM
famotidine 40 mg Tablet
40 mg PO HS
lansoprazole 30 mg Capsule,Delayed Release(Dr/Ec)
30 mg PO NOON
duloxetine 60 mg Capsule,Delayed Release(Dr/Ec)
60 mg PO QPM
multivitamin Tablet
1 tab PO NOON
latanoprost 0.005 % drops
1 drp RIGHT EYE HS
levothyroxine 25 mcg Tablet
25 mcg PO DAILY
cholecalciferol (vitamin D3) [Vitamin D3] 25 mcg (1,000 unit) Capsule
25 mcg PO NOON
Align (B.infantis) 4 mg Capsule
4 mg PO DAILY
Referrals:
Your, Surgeon [Other] - Keep scheduled appt
Jus Whitten MD [Consulting Staff] - As needed
Activity Restrictions/Additional Instructions:
As we discussed, Tylenol as needed for fever, aches and pains
Notify your providers of your diagnosis.
I spoke with Entry Level Sales Consultant Dr. Whitten who recommends to increase your Levothyroxine to 50 mg daily and have repeat TSH in 6 weeks.
You can follow up with him if your PCP recommends it.
Interventions
Interventions:
*Risk Screen - Suicide Last Done: 07/16/24 11:10
*General Assessment Last Done: 07/16/24 11:10
*Neglect/Abuse Screening Last Done: 07/16/24 11:10
*ED COVID-19 Vaccine History Last Done: 07/16/24 11:10
*Nursing Disposition Last Done: 07/16/24 12:07
ED- Cardiac Assessment Last Done: 07/16/24 12:07
ED- Neurological Assessment Last Done: 07/16/24 12:02
ED- Pulmonary Assessment Last Done: 07/16/24 12:02
Discharge Date and Time
Discharge Date/Time: 07/16/24 12:08
Print Language: UKRAINIAN
[2024-07-16 11:09] VITALS: BP 104/50
[2024-07-16 11:19] LABS: Free T4 0.27 ng/dl (0.78-2.19)
[2024-07-16 12:07] VITALS: BP 104/50
== END 2024-07-16 12:08 | disposition home or self-care (01) ==
LOC: EMR 09:29
PROVIDERS: EMERGENCY PHYSICIAN Emergency Medicine; FAMILY PHYSICIAN Internal Medicine
DX: U07.1 COVID-19 (principal); Z11.52 Encounter for screening for COVID-19; Z79.890 Hormone replacement therapy; E03.9 Hypothyroidism, unspecified
CPT/HCPCS: 99283; 80053; 84439; 84443; 85025; 87502; 87811

== ENCOUNTER → 2024-07-28 15:07 | Outpatient (REF) | payer MEDICARE, SELFPAY ==
[2024-07-28 16:45] LABS: ALT (SGPT) 40 U/L (0-35); AST (SGOT) 40 U/L (14-36); Albumin 3.8 g/dl (3.5-5.0); Alkaline Phosphatase 103 U/L (38-126); Blood Urea Nitrogen 17 mg/dl (7-17); Calcium 9.1 mg/dl (8.4-10.2); Carbon Dioxide 22 mmol/L (22-30); Chloride 105 mmol/L (98-107); Glucose 111 mg/dl (70-99); Potassium 3.6 mmol/L (3.5-5.1); Sodium 134 mmol/L (135-145); Total Bilirubin 0.3 mg/dl (0.2-1.3); Total Protein 6.1 g/dl (6.3-8.2); eGFR > 60.00
[2024-07-28 17:42] LABS: % Basophils 1.6 % (0-2); % Eosinophils 1.1 % (0-6); % Immature Granulocytes 0.5 % (0-0.5); % Lymphocytes 23.2 % (20.5-51.1); % Monocytes 8.1 % (1.7-9.3); % Neutrophils 65.5 % (42.2-75.2); Absolute Basophils 0.1 10^3/uL (0-0.2); Absolute Eosinophils 0.1 10^3/uL (0-0.7); Absolute Monocytes 0.4 10^3/uL (0.1-0.6); Absolute Neutrophils 2.9 10^3/uL (1.4-6.5); Hematocrit 35.4 % (37.0-47.0); Hemoglobin 11.3 g/dL (12.0-16.0); Mean Corp Hgb Conc. 31.9 g/dL (33.0-37.0); Mean Corpuscular Hgb 28.5 pg (27.0-31.0); Mean Corpuscular Volume 89.4 fL (81.0-99.0); Mean Platelet Volume 8.3 fL (7.4-10.4); Nucleated Red Blood Cells % 0 %; Platelet Count 252 10^3/uL (130-400); Red Blood Cell Count 3.96 10^6/uL (4.20-5.40); Red Cell Dist. Width 12.9 % (11.5-14.5); White Blood Cell Count 4.4 10^3/uL (4.8-10.8)
[2024-07-28 17:46] LABS: Free T4 0.49 ng/dl (0.78-2.19)
== END ==
LOC: REG 15:07
PROVIDERS: ATTENDING PHYSICIAN Internal Medicine Hematology & Oncology; FAMILY PHYSICIAN Internal Medicine
DX: C50.511 Malignant neoplasm of lower-outer quadrant of right female breast (principal); R53.83 Other fatigue; R79.9 Abnormal finding of blood chemistry, unspecified; K59.00 Constipation, unspecified; E87.1 Hypo-osmolality and hyponatremia
CPT/HCPCS: 36415; 80053; 84439; 84443; 85025

== ENCOUNTER → 2024-08-12 09:33 | Outpatient (REF) | payer MEDICARE, SELFPAY | LOC: WDC 09:33 | PROVIDERS: ATTENDING PHYSICIAN Surgery | DX: C50.411 Malignant neoplasm of upper-outer quadrant of right female breast (principal) | CPT/HCPCS: 19285; 38792; 76942; A4648; A9541 ==

== ENCOUNTER 2024-08-13 06:02 | Day surgery (SDC) | payer MEDICARE, SELFPAY ==
[2024-08-13] VITALS (7 sets, daily range): BP systolic 128–139; BP diastolic 68–76; BMI 21.9
[2024-08-13] MEDS: TYLENOL 1000 MG PO (07:14)
[2024-08-13] MEDS: NORMOSOL-R/PLASMALYTE-A 1000 IV (07:16)
[2024-08-13] MEDS: VANCOCIN 200 IV (08:09)
[2024-08-13] MEDS: LOVENOX 40 MG SC (08:17)
[2024-08-13 08:35] LABS: Cortisol, Random 11.4 ug/dl
--- NOTE | 2024-08-13 11:08 | W.IMMPOSTOP ---
Surgical Immed Post Op Note
-
Primary Surgeon: Donovan
Assisting Surgeon: None
Pre-op Diagnosis: Right breast carcinoma
Post-op Diagnosis: Right breast carcinoma
Procedure Performed: Right localized lumpectomy, sentinel lymph node mapping and biopsy and oncoplastic mastoplasty
Anesthesia Type: TIVA
Specimen / Cultures: Right lumpectomy, margins, sentinel nodes
Estimated Blood Loss: 6cc
Complications: None
Operative Findings: Clip and reflector in specimen; negative lymph nodes on frozen
--- NOTE | 2024-08-13 11:10 | OR.RPT ---
Operative Report
Operative Report
Date of Surgery 08/13/24
Surgeon: Donovan
Pre-Op DX: Right breast ca S/P neoadjuvant chemotherapy
Post-Op DX: Right breast ca S/P neoadjuvant chemotherapy
Procedure: Right localized lumpectomy, sentinel lymph node mapping and biopsy, closure with oncoplastic mastoplasty
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 She underwent neoadjuvant chemotherapy and presents for breast conservation surgery and sentinel lymph node mapping and biopsy. On
the day prior to the procedure the patient presented to the breast imaging center where [employer] associate reflector was placed at that tumor biopsy site and technetium radiotracer was injected into the breast parenchyma.
On the day of surgery the patient presented to the same-day surgical services. She was prepped and DVT and antibiotic prophylaxis were provided. She verified site and procedure and was taken to the operating room. In the supine position
intravenous sedation was delivered. 2 cc of methylene blue were injected into the right breast parenchyma and external massage was applied for 5 minutes. Then the breast was prepped and draped in the usual sterile fashion. An appropriate timeout
was performed and all tissues were anesthetized with 1% lidocaine plain.
Attention was first turned to the axilla where a curvilinear incision was made inferior to the hairline overlying the area of highest external gamma count. Dissection was carried through the clavipectoral fascia using the cautery. And using the
gamma probe and visual siting 3 sentinel node packets were encountered and excised. Feeding vessels were controlled with 3-0 silk tie. Frozen section analysis on the nodes was negative. Hemostasis was verified and Marcaine 0.5% plain was
instilled. This wound was closed using simple and erupted 3-0 plain on deep intermediate and subcutaneous tissue and skin was closed with a running subcuticular 4 Monocryl.
Attention was then turned to the lumpectomy where the Chelsey reflector was sounded out with the probe. In inferior circumareolar incision was made sharply with the blade. Oncoplastic plane was entered and elevated. The CHELSEY probe was used to
isolate the appropriate signal and a wide lumpectomy was performed using the cautery. Time out of body was noted and the specimen was oriented for the pathologist. Specimen radiography confirmed the presence of clip and reflector within it.
Additional margins were harvested for permanent analysis from the posterior, medial, superior, lateral, inferior, and anterior dimensions. These were oriented as well. On this left a resulting defect of 4 x 3 cm therefore in an oncoplastic fashion
a separate parenchymal incision was made to advance of tissue flap into the resected cavity. Hemostasis was verified. Marcaine 0.5% plain was instilled and hemoclips were placed in the resection cavity. A small portion of Surgicel was also
placed. Wound was reapproximated in multiple layers using simple interrupted 3-0 plain and skin was closed with a running subcuticular 4-0 Monocryl. Surgical glue and sterile compressive dressings were applied. All sponge needle and instrument
counts were correct and the patient was transferred to the recovery room in stable condition
([id number], [id number], [id number], [id number])
Zortman Node Bx Breast Cancer
Zortman Node Bx Breast Cancer
Operation performed with curative intent: Yes
Tracer(s) to ID Zortman Nodes in Non-Neoadjuvant setting: N/A
Tracer(s) to ID Sentinal Nodes in the Neoadjuvant Setting: Dye and Radioactive Tracer
All nodes at end of dye-filled Lymphatic Channel removed: Yes
All Significantly Radioactive Nodes were removed: Yes
All Palpably Suspicious Nodes were Removed: Yes
Bx Proven Pos Nodes Marked Prior to Chemo ID'd & Removed: N/A
== END 2024-08-13 12:04 | disposition home or self-care (01) ==
LOC: SDS 06:02
PROVIDERS: ATTENDING PHYSICIAN Surgery
DX: C50.911 Malignant neoplasm of unspecified site of right female breast (principal)
CPT/HCPCS: 38525; 19301; 38900; 14301; 88305; 88307; 88332; 76098; 82533; 88331; 88341; 88342; 88360; A4648; L8000

== ENCOUNTER → 2024-08-18 12:50 | Outpatient (REF) | payer MEDICARE, SELFPAY ==
[2024-08-18 13:29] LABS: % Eosinophils 2.8 % (0-6); % Immature Granulocytes 0.5 % (0-0.5); % Lymphocytes 24.1 % (20.5-51.1); % Monocytes 11.3 % (1.7-9.3); % Neutrophils 60.3 % (42.2-75.2); Absolute Eosinophils 0.1 10^3/uL (0-0.7); Absolute Monocytes 0.5 10^3/uL (0.1-0.6); Absolute Neutrophils 2.4 10^3/uL (1.4-6.5); Hematocrit 34.3 % (37.0-47.0); Hemoglobin 10.9 g/dL (12.0-16.0); Mean Corp Hgb Conc. 31.8 g/dL (33.0-37.0); Mean Corpuscular Hgb 28.6 pg (27.0-31.0); Mean Platelet Volume 8.3 fL (7.4-10.4); Nucleated Red Blood Cells % 0 %; Platelet Count 227 10^3/uL (130-400); Red Blood Cell Count 3.81 10^6/uL (4.20-5.40); Red Cell Dist. Width 13.7 % (11.5-14.5)
[2024-08-18 14:00] LABS: ALT (SGPT) 21 U/L (0-35); AST (SGOT) 22 U/L (14-36); Albumin 3.9 g/dl (3.5-5.0); Alkaline Phosphatase 99 U/L (38-126); Blood Urea Nitrogen 16 mg/dl (7-17); Calcium 9.4 mg/dl (8.4-10.2); Carbon Dioxide 24 mmol/L (22-30); Chloride 104 mmol/L (98-107); Glucose 87 mg/dl (70-99); Potassium 4.2 mmol/L (3.5-5.1); Sodium 135 mmol/L (135-145); Total Bilirubin 0.6 mg/dl (0.2-1.3); Total Protein 6.2 g/dl (6.3-8.2); eGFR > 60.00
== END ==
LOC: REG 12:50
PROVIDERS: ATTENDING PHYSICIAN Internal Medicine Hematology & Oncology; FAMILY PHYSICIAN Internal Medicine
DX: C50.511 Malignant neoplasm of lower-outer quadrant of right female breast (principal); R53.83 Other fatigue; R79.9 Abnormal finding of blood chemistry, unspecified; K59.00 Constipation, unspecified; E87.1 Hypo-osmolality and hyponatremia
CPT/HCPCS: 36415; 80053; 84439; 84443; 85025

== ENCOUNTER → 2024-09-08 09:11 | Outpatient (REF) | payer MEDICARE, SELFPAY ==
[2024-09-08 10:58] LABS: % Basophils 1.6 % (0-2); % Eosinophils 2.6 % (0-6); % Immature Granulocytes 0.3 % (0-0.5); % Lymphocytes 27.5 % (20.5-51.1); % Monocytes 11.8 % (1.7-9.3); % Neutrophils 56.2 % (42.2-75.2); Absolute Basophils 0.1 10^3/uL (0-0.2); Absolute Eosinophils 0.1 10^3/uL (0-0.7); Absolute Lymphocytes 0.8 10^3/uL (1.2-3.4); Absolute Monocytes 0.4 10^3/uL (0.1-0.6); Absolute Neutrophils 1.7 10^3/uL (1.4-6.5); Mean Corp Hgb Conc. 31.4 g/dL (33.0-37.0); Mean Corpuscular Hgb 27.9 pg (27.0-31.0); Mean Corpuscular Volume 88.8 fL (81.0-99.0); Mean Platelet Volume 8.7 fL (7.4-10.4); Nucleated Red Blood Cells % 0 %; Platelet Count 196 10^3/uL (130-400); Red Blood Cell Count 3.94 10^6/uL (4.20-5.40); Red Cell Dist. Width 13.8 % (11.5-14.5); White Blood Cell Count 3.1 10^3/uL (4.8-10.8)
[2024-09-08 11:16] LABS: Glycohemoglobin (HgbA1c) 5.6 % (4.0-5.6)
[2024-09-08 11:32] LABS: Free T4 0.96 ng/dl (0.78-2.19)
[2024-09-08 11:46] LABS: Cortisol, Random 10.1 ug/dl; TSH 8.58 uIU/ml (0.47-4.68)
[2024-09-08 11:52] LABS: ALT (SGPT) 23 U/L (0-35); AST (SGOT) 26 U/L (14-36); Albumin 3.6 g/dl (3.5-5.0); Alkaline Phosphatase 105 U/L (38-126); Blood Urea Nitrogen 18 mg/dl (7-17); Calcium 9.6 mg/dl (8.4-10.2); Carbon Dioxide 27 mmol/L (22-30); Chloride 107 mmol/L (98-107); Glucose 95 mg/dl (70-99); Potassium 4.2 mmol/L (3.5-5.1); Sodium 139 mmol/L (135-145); Total Bilirubin 0.4 mg/dl (0.2-1.3); eGFR > 60.00
[2024-09-09 15:05] LABS: Thyroglobulin Antibodies 3.9 IU/mL (0.0-4.0); Thyroid Peroxidase Ab (TPO) <0.3 IU/mL (0.0-9.0)
== END ==
LOC: REG 09:11
PROVIDERS: ATTENDING PHYSICIAN Internal Medicine Hematology & Oncology; FAMILY PHYSICIAN Internal Medicine; REFERRING PHYSICIAN Nurse Practitioner Family
DX: E03.9 Hypothyroidism, unspecified (principal); F19.99 Other psychoactive substance use, unspecified with unspecified psychoactive substance-induced disorder; C50.511 Malignant neoplasm of lower-outer quadrant of right female breast; R53.83 Other fatigue; R79.9 Abnormal finding of blood chemistry, unspecified; K59.00 Constipation, unspecified; E87.1 Hypo-osmolality and hyponatremia
CPT/HCPCS: 36415; 80053; 82533; 83036; 84439; 84443; 84481; 85025; 86376; 86800

== ENCOUNTER → 2024-09-29 11:05 | Outpatient (REF) | payer MEDICARE, SELFPAY ==
[2024-09-29 11:40] LABS: % Basophils 2.2 % (0-2); % Eosinophils 0.9 % (0-6); % Lymphocytes 29.9 % (20.5-51.1); % Monocytes 12.6 % (1.7-9.3); % Neutrophils 54.4 % (42.2-75.2); Absolute Basophils 0.1 10^3/uL (0-0.2); Absolute Monocytes 0.4 10^3/uL (0.1-0.6); Absolute Neutrophils 1.7 10^3/uL (1.4-6.5); Hematocrit 34.3 % (37.0-47.0); Mean Corp Hgb Conc. 32.1 g/dL (33.0-37.0); Mean Corpuscular Hgb 27.6 pg (27.0-31.0); Mean Corpuscular Volume 86.2 fL (81.0-99.0); Mean Platelet Volume 8.2 fL (7.4-10.4); Nucleated Red Blood Cells % 0 %; Platelet Count 184 10^3/uL (130-400); Red Blood Cell Count 3.98 10^6/uL (4.20-5.40); Red Cell Dist. Width 14.2 % (11.5-14.5); White Blood Cell Count 3.2 10^3/uL (4.8-10.8)
[2024-09-29 12:16] LABS: ALT (SGPT) 24 U/L (0-35); AST (SGOT) 26 U/L (14-36); Albumin 3.6 g/dl (3.5-5.0); Alkaline Phosphatase 96 U/L (38-126); Blood Urea Nitrogen 18 mg/dl (7-17); Calcium 9.5 mg/dl (8.4-10.2); Carbon Dioxide 25 mmol/L (22-30); Chloride 104 mmol/L (98-107); Glucose 90 mg/dl (70-99); Potassium 4.5 mmol/L (3.5-5.1); Sodium 136 mmol/L (135-145); Total Bilirubin 0.4 mg/dl (0.2-1.3); eGFR > 60.00
[2024-09-29 12:38] LABS: TSH Reflex To Free T4 3.08 uIU/ml (0.47-4.68)
== END ==
LOC: REG 11:05
PROVIDERS: ATTENDING PHYSICIAN Internal Medicine Hematology & Oncology; FAMILY PHYSICIAN Internal Medicine
DX: C50.511 Malignant neoplasm of lower-outer quadrant of right female breast (principal); R53.83 Other fatigue; R79.9 Abnormal finding of blood chemistry, unspecified; K59.00 Constipation, unspecified; E87.1 Hypo-osmolality and hyponatremia
CPT/HCPCS: 36415; 80053; 84443; 85025

== ENCOUNTER → 2024-10-20 14:21 | Outpatient (REF) | payer MEDICARE, SELFPAY ==
[2024-10-20 15:48] LABS: % Basophils 1.8 % (0-2); % Eosinophils 1.2 % (0-6); % Immature Granulocytes 0.3 % (0-0.5); % Lymphocytes 22.3 % (20.5-51.1); % Monocytes 12.8 % (1.7-9.3); % Neutrophils 61.6 % (42.2-75.2); Absolute Basophils 0.1 10^3/uL (0-0.2); Absolute Lymphocytes 0.8 10^3/uL (1.2-3.4); Absolute Monocytes 0.4 10^3/uL (0.1-0.6); Absolute Neutrophils 2.1 10^3/uL (1.4-6.5); Hematocrit 37.1 % (37.0-47.0); Hemoglobin 11.9 g/dL (12.0-16.0); Mean Corp Hgb Conc. 32.1 g/dL (33.0-37.0); Mean Corpuscular Hgb 27.9 pg (27.0-31.0); Mean Corpuscular Volume 86.9 fL (81.0-99.0); Mean Platelet Volume 8.6 fL (7.4-10.4); Nucleated Red Blood Cells % 0 %; Platelet Count 191 10^3/uL (130-400); Red Blood Cell Count 4.27 10^6/uL (4.20-5.40); Red Cell Dist. Width 14.8 % (11.5-14.5); White Blood Cell Count 3.4 10^3/uL (4.8-10.8)
[2024-10-20 16:06] LABS: ALT (SGPT) 20 U/L (0-35); AST (SGOT) 26 U/L (14-36); Albumin 3.9 g/dl (3.5-5.0); Alkaline Phosphatase 98 U/L (38-126); Blood Urea Nitrogen 16 mg/dl (7-17); Calcium 9.6 mg/dl (8.4-10.2); Carbon Dioxide 24 mmol/L (22-30); Chloride 105 mmol/L (98-107); Glucose 84 mg/dl (70-99); Potassium 4.2 mmol/L (3.5-5.1); Sodium 135 mmol/L (135-145); Total Bilirubin 0.4 mg/dl (0.2-1.3); Total Protein 6.7 g/dl (6.3-8.2); eGFR > 60.00
== END ==
LOC: REG 14:21
PROVIDERS: ATTENDING PHYSICIAN Internal Medicine Hematology & Oncology; FAMILY PHYSICIAN Internal Medicine
DX: C50.511 Malignant neoplasm of lower-outer quadrant of right female breast (principal); R53.83 Other fatigue; R79.9 Abnormal finding of blood chemistry, unspecified; K59.00 Constipation, unspecified; E87.1 Hypo-osmolality and hyponatremia
CPT/HCPCS: 36415; 80053; 84443; 85025

== ENCOUNTER → 2024-11-11 14:09 | Outpatient (REF) | payer MEDICARE, SELFPAY ==
[2024-11-11 16:51] LABS: % Basophils 1.3 % (0-2); % Immature Granulocytes 0.3 % (0-0.5); % Monocytes 15.3 % (1.7-9.3); % Neutrophils 64.1 % (42.2-75.2); Absolute Basophils 0.1 10^3/uL (0-0.2); Absolute Lymphocytes 0.7 10^3/uL (1.2-3.4); Absolute Monocytes 0.6 10^3/uL (0.1-0.6); Absolute Neutrophils 2.6 10^3/uL (1.4-6.5); Hematocrit 36.6 % (37.0-47.0); Hemoglobin 11.8 g/dL (12.0-16.0); Mean Corp Hgb Conc. 32.2 g/dL (33.0-37.0); Mean Corpuscular Hgb 28.2 pg (27.0-31.0); Mean Corpuscular Volume 87.4 fL (81.0-99.0); Mean Platelet Volume 8.7 fL (7.4-10.4); Nucleated Red Blood Cells % 0 %; Platelet Count 193 10^3/uL (130-400); Red Blood Cell Count 4.19 10^6/uL (4.20-5.40)
[2024-11-11 17:13] LABS: ALT (SGPT) 24 U/L (0-35); AST (SGOT) 29 U/L (14-36); Albumin 4.1 g/dl (3.5-5.0); Alkaline Phosphatase 95 U/L (38-126); Blood Urea Nitrogen 15 mg/dl (7-17); Calcium 9.3 mg/dl (8.4-10.2); Carbon Dioxide 21 mmol/L (22-30); Chloride 107 mmol/L (98-107); Glucose 78 mg/dl (70-99); Potassium 4.3 mmol/L (3.5-5.1); Sodium 135 mmol/L (135-145); Total Bilirubin 0.4 mg/dl (0.2-1.3); Total Protein 6.4 g/dl (6.3-8.2); eGFR > 60.00
[2024-11-11 17:42] LABS: TSH Reflex To Free T4 2.36 uIU/ml (0.47-4.68)
== END ==
LOC: REG 14:09
PROVIDERS: ATTENDING PHYSICIAN Internal Medicine Hematology & Oncology; FAMILY PHYSICIAN Internal Medicine
DX: C50.511 Malignant neoplasm of lower-outer quadrant of right female breast (principal); R53.83 Other fatigue; R79.9 Abnormal finding of blood chemistry, unspecified; K59.00 Constipation, unspecified; E87.1 Hypo-osmolality and hyponatremia
CPT/HCPCS: 36415; 80053; 84443; 85025

== ENCOUNTER → 2024-12-01 15:14 | Outpatient (REF) | payer MEDICARE, SELFPAY ==
[2024-12-01 17:14] LABS: % Basophils 0.7 % (0-2); % Eosinophils 0.7 % (0-6); % Immature Granulocytes 0.5 % (0-0.5); % Monocytes 14.8 % (1.7-9.3); % Neutrophils 64.3 % (42.2-75.2); Absolute Lymphocytes 0.8 10^3/uL (1.2-3.4); Absolute Monocytes 0.6 10^3/uL (0.1-0.6); Absolute Neutrophils 2.7 10^3/uL (1.4-6.5); Hematocrit 36.6 % (37.0-47.0); Mean Corp Hgb Conc. 32.8 g/dL (33.0-37.0); Mean Corpuscular Hgb 28.6 pg (27.0-31.0); Mean Corpuscular Volume 87.4 fL (81.0-99.0); Mean Platelet Volume 8.6 fL (7.4-10.4); Nucleated Red Blood Cells % 0 %; Platelet Count 202 10^3/uL (130-400); Red Blood Cell Count 4.19 10^6/uL (4.20-5.40); Red Cell Dist. Width 14.5 % (11.5-14.5); White Blood Cell Count 4.2 10^3/uL (4.8-10.8)
[2024-12-01 17:20] LABS: ALT (SGPT) 30 U/L (0-35); AST (SGOT) 34 U/L (14-36); Albumin 4.1 g/dl (3.5-5.0); Alkaline Phosphatase 88 U/L (38-126); Blood Urea Nitrogen 12 mg/dl (7-17); Calcium 9.6 mg/dl (8.4-10.2); Carbon Dioxide 25 mmol/L (22-30); Chloride 105 mmol/L (98-107); Glucose 82 mg/dl (70-99); Potassium 4.2 mmol/L (3.5-5.1); Sodium 133 mmol/L (135-145); Total Bilirubin 0.5 mg/dl (0.2-1.3); Total Protein 6.5 g/dl (6.3-8.2); eGFR > 60.00
== END ==
LOC: REG 15:14
PROVIDERS: ATTENDING PHYSICIAN Internal Medicine Hematology & Oncology; FAMILY PHYSICIAN Internal Medicine
DX: C50.511 Malignant neoplasm of lower-outer quadrant of right female breast (principal); R53.83 Other fatigue; R79.9 Abnormal finding of blood chemistry, unspecified; K59.00 Constipation, unspecified; E87.1 Hypo-osmolality and hyponatremia
CPT/HCPCS: 36415; 80053; 84443; 85025

== ENCOUNTER → 2024-12-09 13:07 | Outpatient (REF) | payer MEDICARE, SELFPAY | LOC: WDC 13:07 | PROVIDERS: ATTENDING PHYSICIAN Surgery; FAMILY PHYSICIAN Internal Medicine | DX: Z12.31 Encounter for screening mammogram for malignant neoplasm of breast (principal) | CPT/HCPCS: 77063; 77067 ==

== ENCOUNTER → 2024-12-29 11:57 | Outpatient (REF) | payer MEDICARE, SELFPAY ==
[2024-12-29 13:02] LABS: Hematocrit 35.3 % (37.0-47.0); Hemoglobin 11.6 g/dL (12.0-16.0); Mean Corp Hgb Conc. 32.9 g/dL (33.0-37.0); Mean Corpuscular Volume 88.7 fL (81.0-99.0); Nucleated Red Blood Cells % 0 %; Platelet Count 206 10^3/uL (130-400); Red Cell Dist. Width 13.7 % (11.5-14.5)
[2024-12-29 13:42] LABS: ALT (SGPT) 24 U/L (0-35); AST (SGOT) 28 U/L (14-36); Albumin 3.8 g/dl (3.5-5.0); Alkaline Phosphatase 72 U/L (38-126); Blood Urea Nitrogen 11 mg/dl (7-17); Calcium 9.1 mg/dl (8.4-10.2); Carbon Dioxide 23 mmol/L (22-30); Chloride 107 mmol/L (98-107); Glucose 80 mg/dl (70-99); Potassium 3.8 mmol/L (3.5-5.1); Sodium 136 mmol/L (135-145); Total Protein 6.0 g/dl (6.3-8.2); eGFR > 60.00
== END ==
LOC: REG 11:57
PROVIDERS: ATTENDING PHYSICIAN Nurse Practitioner Primary Care; FAMILY PHYSICIAN Internal Medicine
DX: C50.511 Malignant neoplasm of lower-outer quadrant of right female breast (principal); R53.83 Other fatigue; R79.9 Abnormal finding of blood chemistry, unspecified; K59.00 Constipation, unspecified; E87.1 Hypo-osmolality and hyponatremia
CPT/HCPCS: 36415; 80053; 85025

== ENCOUNTER → 2024-12-30 07:19 | Outpatient (REF) | payer MEDICARE, SELFPAY | LOC: REG 07:19 | PROVIDERS: ATTENDING PHYSICIAN Nurse Practitioner Primary Care; FAMILY PHYSICIAN Internal Medicine | DX: C50.511 Malignant neoplasm of lower-outer quadrant of right female breast (principal); R53.83 Other fatigue; R79.9 Abnormal finding of blood chemistry, unspecified; K59.00 Constipation, unspecified; E87.1 Hypo-osmolality and hyponatremia | CPT/HCPCS: 87324; 87328; 87329; 87449 ==

== ENCOUNTER → 2025-01-13 12:40 | Outpatient (REF) | payer MEDICARE, SELFPAY ==
[2025-01-13 13:24] LABS: Hematocrit 38.2 % (37.0-47.0); Hemoglobin 12.8 g/dL (12.0-16.0); Mean Corp Hgb Conc. 33.5 g/dL (33.0-37.0); Mean Corpuscular Volume 86.4 fL (81.0-99.0); Nucleated Red Blood Cells % 0 %; Platelet Count 272 10^3/uL (130-400); Red Cell Dist. Width 13.9 % (11.5-14.5)
[2025-01-13 13:52] LABS: Blood Urea Nitrogen 18 mg/dl (7-17); Calcium 9.4 mg/dl (8.4-10.2); Carbon Dioxide 23 mmol/L (22-30); Chloride 101 mmol/L (98-107); Glucose 76 mg/dl (70-99); Potassium 4.4 mmol/L (3.5-5.1); Sodium 130 mmol/L (135-145); eGFR > 60.00
[2025-01-13 14:23] LABS: TSH 0.44 uIU/ml (0.47-4.68)
== END ==
LOC: REG 12:40
PROVIDERS: ATTENDING PHYSICIAN Nurse Practitioner Adult Health; FAMILY PHYSICIAN Internal Medicine
DX: C50.511 Malignant neoplasm of lower-outer quadrant of right female breast (principal); R53.83 Other fatigue; R79.9 Abnormal finding of blood chemistry, unspecified; K59.00 Constipation, unspecified; E87.1 Hypo-osmolality and hyponatremia
CPT/HCPCS: 36415; 80048; 84443; 85025

== ENCOUNTER 2025-02-05 15:50 | Emergency (ER) | payer MEDICARE, SELFPAY ==
[2025-02-05 16:03] VITALS: BP 142/64
--- NOTE | 2025-02-05 18:44 | ED.GENMED ---
History of Present Illness
General
Chief Complaint: Head Injury
Time Seen by Provider: 02/05/25 17:17
History of Present Illness
History of Present Illness:
79-year-old female presents to the emergency department for evaluation after a mechanical fall resulting in a head injury. She was leaning forward to make her bed when she lost her balance and fell striking the right side of her head on her
dresser. She has a prior history of stroke and typically has difficulty balancing on her right side. Denies any headache, vision changes, nausea, or vomiting currently. She does not take any blood thinners but is on aspirin
Past History
Past History
ED Past Medical History: Cancer (Breast), CVA, Hypothyroidism and Other
ED Past Surgical History: Cardiac
Patient has exhibited threatening behavior?: No
Social History
Tobacco: Non-smoker
Alcohol: Occasional
Drug: None
Personal:
Living: with family
Review of Systems
Review of Systems
Allergies reviewed?: Yes
All Other Systems: ROS reviewed and negative except as documented in HPI and ROS
Phy Exam
Physical Exam
Physical Exam:
GEN: Well appearing, NAD, WDWN
HEENT: Small cephalohematoma to the right parietal temporal scalp oral mucosa moist, no scleral icterus
Cardiac: Regular rate
Lung: No respiratory distress, no tachypnea
MSK: No gross deformity or injuries
Skin: Good color, no pallor or jaundice, no rashes
Neuro: AO x3, moves all extremities freely however baseline right-sided weakness noted
Psych: Calm, cooperative
Course
Orders/Labs/Results
Orders:
Orders
02/05/25 16:05
CT Head W/o Iv Contrast Urgent
Comment:
Reason For Exam: fall, head injury
Vital Signs
Initial and Last Documented VS:
Initial Vital Signs
Temp Pulse Resp BP Pulse Ox
97.8 F 85 18 142/64 100
08/30/25 16:03 02/05/25 16:03 02/05/25 16:03 02/05/25 16:03 02/05/25 16:03
Last Documented Vital Signs
Temp Pulse Resp BP Pulse Ox
97.8 F 85 18 142/64 100
02/05/25 16:03 02/05/25 16:03 02/05/25 16:03 02/05/25 16:03 02/05/25 18:46
MDM/Problems Addressed
MDM/Problems Addressed:
Imaging obtained due to blunt head trauma in a 71-year-old female with a moderate cephalohematoma, imaging was fortunately reassuring. She has no concussive signs or symptoms at this time
*Pulse Oximetry
SaO2: 100
Oxygen Mode of Delivery: Room air
Patient hypoxic: no
*Critical Care Note
Total Time (30-74mins, 75-104mins- exclusive of procedures): Not Applicable
ED Attending Note
-
Portions of this chart may have been created with voice recognition software.� Occasional wrong word or��sound alike� substitutions may have occurred due to the inherent limitations of voice recognition software.
Discharge Plan
Departure
Patient Disposition: Home (Routine Discharge)
Date of Disposition: 02/05/25
Time of Disposition: 18:45
Patient with high blood pressure during this ER visit?: No
Discharge Problem:
Closed head injury
Instructions: Head Injury in Adults (DC)
Prescriptions:
No Action
baclofen 10 MG tablet
10 mg PO TID
ramipril 10 MG capsule
10 mg PO QPM
aspirin 81 MG tablet
81 mg PO DAILY
rosuvastatin [Crestor] 10 MG tablet
10 mg PO QPM
famotidine 40 mg Tablet
40 mg PO HS
lansoprazole 30 mg Capsule,Delayed Release(Dr/Ec)
30 mg PO DAILY
duloxetine 60 mg Capsule,Delayed Release(Dr/Ec)
60 mg PO QPM
multivitamin Tablet
1 tab PO NOON
latanoprost 0.005 % drops
1 drp RIGHT EYE HS
cholecalciferol (vitamin D3) [Vitamin D3] 25 mcg (1,000 unit) Capsule
25 mcg PO NOON
Align (B.infantis) 4 mg Capsule
4 mg PO DAILY
levothyroxine 75 mcg Tablet
75 mcg PO DAILY
Referrals:
UNKNOWN - PT NOT,INTERVIEWE [Unknown Provider]
Interventions
Interventions:
*Risk Screen - Suicide Last Done: 02/05/25 16:03
*General Assessment Last Done: 02/05/25 16:03
*Neglect/Abuse Screening Last Done: 02/05/25 16:03
*ED COVID-19 Vaccine History Last Done: 02/05/25 16:03
*Nursing Disposition Last Done: 02/05/25 19:23
Discharge Date and Time
Discharge Date/Time: 02/05/25 19:25
Print Language: CUBAN
== END 2025-02-05 19:25 | disposition home or self-care (01) ==
LOC: EMR 15:50
PROVIDERS: EMERGENCY PHYSICIAN Emergency Medicine; FAMILY PHYSICIAN Internal Medicine
DX: S09.90XA Unspecified injury of head, initial encounter (principal); W01.198A Fall on same level from slipping, tripping and stumbling with subsequent striking against other object, initial encounter; E03.9 Hypothyroidism, unspecified; Z85.3 Personal history of malignant neoplasm of breast; Z86.73 Personal history of transient ischemic attack (TIA), and cerebral infarction without residual deficits
CPT/HCPCS: 99284; 70450

== ENCOUNTER 2025-02-17 10:22 | Emergency (ER) | payer MEDICARE, SELFPAY ==
[2025-02-17 10:33] VITALS: BP 130/72
--- NOTE | 2025-02-17 11:14 | ED.GENMED ---
History of Present Illness
General
Chief Complaint: Urinary Symptoms
Time Seen by Provider: 02/17/25 11:14
History of Present Illness
History of Present Illness:
FOCUSED PAST MEDICAL HISTORY
- History of TBI, stroke, high blood pressure, breast cancer, anxiety/depression
REVIEW OF OLD RECORDS
- I reviewed records, the patient was seen here after head injury 2 weeks ago and at that time CT head was unremarkable
Note:
CHIEF COMPLAINT(S)
- Inability to urinate.
HISTORY OF PRESENT ILLNESS
The patient is a 79-year-old female presenting with an inability to urinate, a condition she describes as 'I cant pee today.' She reports a similar incident several years ago, which was associated with medication use, specifically amitriptyline.
During that episode, catheterization was required. She is currently not taking amitriptyline but was recently on prednisone for one month. The patient had breast cancer for which she underwent treatment, but she does not provide specific details
about the kind of therapy. She indicates there has been no urination since this morning and experiences significant difficulty, with the last episode of similar urinary retention occurring approximately five years ago.
During the evaluation, a bladder scan showed a significant amount of retained urine, quantified at 271 mL. The scan suggests urinary retention, although this is not as extreme as past instances mentioned by the patient, where retained volumes were
significantly higher.
PAST MEDICAL AND SURGICAL HISTORY
- History of breast cancer.
PHYSICAL EXAM
General: Alert, no acute distress.
Skin: Warm, dry.
Head: Normocephalic, atraumatic.
Neck: Supple, trachea midline.
Eye Ears, Nose, Mouth, and Throat: Oral mucosa moist.
Cardiovascular: Normal peripheral perfusion, No edema.
Respiratory: Respirations are non-labored.
Gastrointestinal: Abdomen nondistended. Mild tenderness in the suprapubic region upon arrival
Back: Normal range of motion, Normal alignment.
Musculoskeletal: Marked decreased active range of motion on the right side related to prior stroke, gait dysfunction
Neurological: Alert and oriented to person, place, time, and situation, right upper and right lower extremity weakness with flexion contracture to the right upper extremity related to prior
Psychiatric: Cooperative, appropriate mood & affect.
PROBLEM LIST
Acute Problems:
- Urinary retention.
PLAN
- Catheterization was agreed upon to relieve urinary retention.
- However patient was able to spontaneously void and repeat ultrasound (postvoid) was 0 mL
DIFFERENTIAL DIAGNOSIS
The Differential Diagnosis includes, in no particular order and is not limited to:
- Urinary tract infection.
- Drug-induced urinary retention.
- Neurogenic bladder.
- Bladder outlet obstruction.
- Detrusor muscle dysfunction.
- Post-operative urinary retention.
- Bladder stone.
- Constipation-related urinary retention.
- Bowel obstruction.
- Prostatic hypertrophy (less likely given patients gender but possible in context of differential).
Disposition:
SUMMARY OF ENCOUNTER
The patient, a 79-year-old female, presented to the emergency department with an inability to urinate, a similar condition that occurred several years ago linked to medication use. A bladder scan indicated urinary retention with 271 mL of retained
urine. During the visit, the patient was able to urinate on her own, albeit with difficulty, and there was no immediate need for catheterization, which may increase the risk of infection. The possibility of a neurogenic bladder component was
discussed due to the patients medical history. The patient was advised to follow up with a urologist for further outpatient evaluation and management.
PLAN
Discharge with basic discharge paperwork and referral for follow-up with a urologist for further evaluation and management of urinary retention issues as an outpatient.
PATIENT EDUCATION AND COUNSELING
The patient was advised that even though urination is currently difficult, it is preferable to avoid catheterization to prevent infection risks. The importance of follow-up with a urologist for a comprehensive outpatient evaluation was emphasized.
FOLLOW-UP INSTRUCTIONS
Please follow up with a urologist. Contact information will be provided for scheduling an outpatient evaluation.
MEDICAL DECISION MAKING
-Complexity of Data Reviewed: Chronic conditions affecting care include breast cancer history. Differential diagnosis list includes urinary tract infection, drug-induced urinary retention, neurogenic bladder, bladder outlet obstruction, detrusor
muscle dysfunction, postoperative urinary retention, bladder stone, constipation-related urinary retention, bowel obstruction.
-Data:
Category 1
A bladder scan was conducted, indicating 271 mL of retained urine, pointing to urinary retention.
-Risk:
Prescription medication was not prescribed. The decision to manage without catheterization was based on the ability of the patient to urinate with difficulty, deeming invasive intervention unnecessary at this time.
DIAGNOSIS
Urinary Retention, R33.8 - Other retention of urine.
Patient was able to spontaneously void while in the emergency department after initial evaluation. PVR 0 mL. Recommend follow-up with urology. Suspect neurogenic bladder related to prior CVA.
Past History
Past History
ED Past Medical History: Cancer (Breast), CVA, Hypothyroidism and Other
ED Past Surgical History: Cardiac
Patient has exhibited threatening behavior?: No
Social History
Tobacco: Non-smoker
Alcohol: Occasional
Drug: None
Personal:
Living: with family
Phy Exam
Physical Exam
Physical Exam:
See HPI
Course
Orders/Labs/Results
Orders:
Orders
02/17/25 11:14
Bladder Scan- Treatment ONCE
02/17/25 11:27
Catheter [[facility] Placement- Treatment] ONCE
Reason for insertion: Acute Retention
02/17/25 11:28
Urinalysis Reflex To Culture Urgent
Vital Signs
Initial and Last Documented VS:
Initial Vital Signs
Temp Pulse Resp BP Pulse Ox
36.5 C 85 18 130/72 98
02/17/25 10:33 02/17/25 10:33 02/17/25 10:33 02/17/25 10:33 02/17/25 10:33
Last Documented Vital Signs
Temp Pulse Resp BP Pulse Ox
36.5 C 85 18 130/72 98
02/17/25 10:33 02/17/25 10:33 02/17/25 10:33 02/17/25 10:33 02/17/25 11:17
*Pulse Oximetry
SaO2: 98
Oxygen Mode of Delivery: Room air
Patient hypoxic: no
*Critical Care Note
Total Time (30-74mins, 75-104mins- exclusive of procedures): Not Applicable
ED Attending Note
-
Portions of this chart may have been created with voice recognition software.� Occasional wrong word or��sound alike� substitutions may have occurred due to the inherent limitations of voice recognition software.
Discharge Plan
Departure
Patient Disposition: Home (Routine Discharge)
Date of Disposition: 02/17/25
Time of Disposition: 11:57
Patient with high blood pressure during this ER visit?: Yes
Discharge Problem:
Neurogenic bladder as late effect of cerebrovascular accident (CVA)
Prescriptions:
No Action
baclofen 10 MG tablet
10 mg PO TID
ramipril 10 MG capsule
10 mg PO QPM
aspirin 81 MG tablet
81 mg PO DAILY
rosuvastatin [Crestor] 10 MG tablet
10 mg PO QPM
famotidine 40 mg Tablet
40 mg PO HS
lansoprazole 30 mg Capsule,Delayed Release(Dr/Ec)
30 mg PO DAILY
duloxetine 60 mg Capsule,Delayed Release(Dr/Ec)
60 mg PO QPM
multivitamin Tablet
1 tab PO NOON
latanoprost 0.005 % drops
1 drp RIGHT EYE HS
cholecalciferol (vitamin D3) [Vitamin D3] 25 mcg (1,000 unit) Capsule
25 mcg PO NOON
Align (B.infantis) 4 mg Capsule
4 mg PO DAILY
levothyroxine 75 mcg Tablet
75 mcg PO DAILY
Interventions
Interventions:
*Risk Screen - Suicide Last Done: 02/17/25 10:33
*General Assessment Last Done: 02/17/25 11:51
*Neglect/Abuse Screening Last Done: 02/17/25 11:51
*ED- Fall Risk Assessment Last Done: 02/17/25 11:51
*ED COVID-19 Vaccine History Last Done: 02/17/25 11:51
ED-Female Genitourinary Assessment Last Done: 02/17/25 11:51
Discharge Date and Time
Print Language: GAMBIAN
[2025-02-17 11:30] VITALS: BMI 23.9
[2025-02-17 12:00] VITALS: BP 132/71
== END 2025-02-17 12:29 | disposition home or self-care (01) ==
LOC: EMR 10:22
PROVIDERS: EMERGENCY PHYSICIAN Emergency Medicine; FAMILY PHYSICIAN Internal Medicine
DX: I69.398 Other sequelae of cerebral infarction (principal); N31.9 Neuromuscular dysfunction of bladder, unspecified; I10 Essential (primary) hypertension; E03.9 Hypothyroidism, unspecified; F41.9 Anxiety disorder, unspecified; F32.A Depression, unspecified; Z79.82 Long term (current) use of aspirin; Z85.3 Personal history of malignant neoplasm of breast; Z87.820 Personal history of traumatic brain injury
CPT/HCPCS: 99283

== ENCOUNTER → 2025-03-09 15:42 | Outpatient (REF) | payer MEDICARE, SELFPAY ==
[2025-03-09 16:06] LABS: Hematocrit 35.7 % (37.0-47.0); Hemoglobin 11.2 g/dL (12.0-16.0); Mean Corp Hgb Conc. 31.4 g/dL (33.0-37.0); Mean Corpuscular Volume 90.8 fL (81.0-99.0); Nucleated Red Blood Cells % 0 %; Platelet Count 214 10^3/uL (130-400); Red Cell Dist. Width 13.4 % (11.5-14.5)
[2025-03-09 18:13] LABS: Blood Urea Nitrogen 14 mg/dl (7-17); Calcium 9.1 mg/dl (8.4-10.2); Carbon Dioxide 23 mmol/L (22-30); Chloride 111 mmol/L (98-107); Glucose 109 mg/dl (70-99); Magnesium 1.9 mg/dl (1.6-2.3); Potassium 3.4 mmol/L (3.5-5.1); Sodium 141 mmol/L (135-145); eGFR > 60.00
== END ==
LOC: REG 15:42
PROVIDERS: ATTENDING PHYSICIAN Internal Medicine Hematology & Oncology; FAMILY PHYSICIAN Internal Medicine
DX: C50.511 Malignant neoplasm of lower-outer quadrant of right female breast (principal); R53.83 Other fatigue; R79.9 Abnormal finding of blood chemistry, unspecified; K59.00 Constipation, unspecified; E87.1 Hypo-osmolality and hyponatremia
CPT/HCPCS: 36415; 80048; 83735; 85025

== ENCOUNTER → 2025-03-10 10:38 | Outpatient (REF) | payer MEDICARE, SELFPAY | LOC: REG 10:38 | PROVIDERS: ATTENDING PHYSICIAN Internal Medicine Hematology & Oncology; FAMILY PHYSICIAN Internal Medicine | DX: C50.511 Malignant neoplasm of lower-outer quadrant of right female breast (principal); R53.83 Other fatigue; R79.9 Abnormal finding of blood chemistry, unspecified; K59.00 Constipation, unspecified; E87.1 Hypo-osmolality and hyponatremia | CPT/HCPCS: 87045; 87046; 87324; 87427; 87449 ==

== ENCOUNTER → 2025-04-11 14:42 | Outpatient (REF) | payer MEDICARE, SELFPAY ==
[2025-04-11 16:26] LABS: Hematocrit 40.1 % (37.0-47.0); Hemoglobin 12.3 g/dL (12.0-16.0); Mean Corp Hgb Conc. 30.7 g/dL (33.0-37.0); Mean Corpuscular Volume 92.6 fL (81.0-99.0); Nucleated Red Blood Cells % 0 %; Platelet Count 238 10^3/uL (130-400); Red Cell Dist. Width 13.8 % (11.5-14.5)
[2025-04-11 16:44] LABS: ALT (SGPT) 26 U/L (0-35); AST (SGOT) 24 U/L (14-36); Albumin 3.9 g/dl (3.5-5.0); Alkaline Phosphatase 75 U/L (38-126); Blood Urea Nitrogen 19 mg/dl (7-17); Calcium 9.2 mg/dl (8.4-10.2); Carbon Dioxide 27 mmol/L (22-30); Chloride 97 mmol/L (98-107); Glucose 95 mg/dl (70-99); Potassium 3.7 mmol/L (3.5-5.1); Sodium 129 mmol/L (135-145); Total Protein 6.1 g/dl (6.3-8.2); eGFR > 60.00
== END ==
LOC: REG 14:42
PROVIDERS: ATTENDING PHYSICIAN Internal Medicine Hematology & Oncology; FAMILY PHYSICIAN Internal Medicine
DX: C50.511 Malignant neoplasm of lower-outer quadrant of right female breast (principal); R53.83 Other fatigue; R79.9 Abnormal finding of blood chemistry, unspecified; K59.00 Constipation, unspecified; E87.1 Hypo-osmolality and hyponatremia
CPT/HCPCS: 36415; 80053; 85025

== ENCOUNTER → 2025-05-11 13:03 | Outpatient (REF) | payer MEDICARE, SELFPAY ==
[2025-05-11 14:38] LABS: Hematocrit 38.2 % (37.0-47.0); Hemoglobin 11.8 g/dL (12.0-16.0); Mean Corp Hgb Conc. 30.9 g/dL (33.0-37.0); Mean Corpuscular Volume 92.3 fL (81.0-99.0); Nucleated Red Blood Cells % 0 %; Platelet Count 245 10^3/uL (130-400); Red Cell Dist. Width 14.1 % (11.5-14.5)
[2025-05-11 15:18] LABS: ALT (SGPT) 38 U/L (0-35); AST (SGOT) 34 U/L (14-36); Albumin 4.0 g/dl (3.5-5.0); Alkaline Phosphatase 82 U/L (38-126); Blood Urea Nitrogen 11 mg/dl (7-17); Calcium 9.4 mg/dl (8.4-10.2); Carbon Dioxide 24 mmol/L (22-30); Chloride 106 mmol/L (98-107); Glucose 80 mg/dl (70-99); Magnesium 1.9 mg/dl (1.6-2.3); Potassium 3.8 mmol/L (3.5-5.1); Sodium 135 mmol/L (135-145); Total Protein 6.4 g/dl (6.3-8.2); eGFR > 60.00
== END ==
LOC: REG 13:03
PROVIDERS: ATTENDING PHYSICIAN Nurse Practitioner Adult Health; FAMILY PHYSICIAN Internal Medicine
DX: C50.511 Malignant neoplasm of lower-outer quadrant of right female breast (principal); R53.83 Other fatigue; R79.9 Abnormal finding of blood chemistry, unspecified; K59.00 Constipation, unspecified; E87.1 Hypo-osmolality and hyponatremia
CPT/HCPCS: 36415; 80053; 83735; 85025

== ENCOUNTER → 2025-05-11 22:15 | Outpatient (REF) | payer MEDICARE, SELFPAY | LOC: REG 22:15 | PROVIDERS: ATTENDING PHYSICIAN Nurse Practitioner Adult Health; FAMILY PHYSICIAN Internal Medicine | DX: C50.511 Malignant neoplasm of lower-outer quadrant of right female breast (principal); R53.83 Other fatigue; R79.9 Abnormal finding of blood chemistry, unspecified; K59.00 Constipation, unspecified; E87.1 Hypo-osmolality and hyponatremia | CPT/HCPCS: 36415; 80053; 83735; 85025; 87045; 87046; 87324; 87328; 87329; 87427; 87449 ==

== ENCOUNTER → 2025-06-07 13:49 | Outpatient (REF) | payer MEDICARE, SELFPAY ==
[2025-06-07 15:05] LABS: C-Reactive Protein < 5.00 mg/L (0.0-10.00)
== END ==
LOC: REG 13:49
PROVIDERS: ATTENDING PHYSICIAN Internal Medicine Gastroenterology; FAMILY PHYSICIAN Internal Medicine; REFERRING PHYSICIAN Internal Medicine Hematology & Oncology
DX: R19.7 Diarrhea, unspecified (principal)
CPT/HCPCS: 36415; 82784; 83516; 86140; 86231

== ENCOUNTER → 2025-06-08 15:56 | Outpatient (REF) | payer MEDICARE, SELFPAY | LOC: REG 15:56 | PROVIDERS: ATTENDING PHYSICIAN Internal Medicine Gastroenterology; FAMILY PHYSICIAN Internal Medicine | DX: R19.7 Diarrhea, unspecified (principal) | CPT/HCPCS: 83993 ==